=== PATIENT | female | born 2000 | race Two or more races ===

== ENCOUNTER 2024-07-18 05:38 | Inpatient (IN) | payer OTHER, SELFPAY ==
[2024-07-18] VITALS (15 sets, daily range): BP systolic 118–159; BP diastolic 74–103; PULSE 98–126; RESP 15–22; TEMP 36.1–37.1; O2SAT 88–99; BMI 59.7; BMI 59.8
--- NOTE | ~2024-07-18 | XR_ITS ---
EXAMINATION: XR CHEST CLINICAL INFORMATION: Cough. COMPARISON: None available. TECHNIQUE: Frontal view of the chest was obtained. FINDINGS: A left pectoral tunneled internal jugular catheter terminates in projection with the cavoatrial junction. Normal appearance of the cardiomediastinal structures. No effusions or pneumothoraces. Normal pattern of pulmonary vasculature. No focal pulmonary consolidation. XR/XR chest 1V IMPRESSION: No acute cardiopulmonary abnormalities. Electronically signed by: Camron Kingsley MD 07/18/2024 06:28 AM [facility] JE[facility]
--- NOTE | ~2024-07-18 | US_ITS ---
EXAMINATION: US TRIPLEX LOWER EXTREMITY, BILATERAL CLINICAL INFORMATION: Pulmonary embolism. Concerning BVD. COMPARISON: None available. TECHNIQUE: Color-flow triplex imaging with spectral analysis and compression Doppler were performed on the bilateral lower extremities. FINDINGS: Respiratory variation, normal compression and augmented flow are noted throughout the bilateral lower extremities. The visualized common femoral vein, superficial femoral vein, profunda femoral vein, popliteal vein and midcalf peroneal and posterior tibial venous segments show no evidence of deep venous thrombosis bilaterally. There is no Gaviria's cyst. US/US venous duplex LE BI IMPRESSION: No acute deep venous thrombosis in the interrogated veins, both lower extremities. Electronically signed by: Trevor Hernandez MD 07/18/2024 12:56 PM EST
--- NOTE | ~2024-07-18 | CT_ITS ---
EXAMINATION: CT ANGIOGRAM CHEST CLINICAL INFORMATION: Hypoxia. Tachycardia. COMPARISON: None available. TECHNIQUE: Multiple axial images were obtained through the chest after the administration of 85 mL of Omnipaque 350 intravenous contrast without reported immediate complications. Extensive vascular post-processing including two-dimensional and three-dimensional reformatted images were created and reviewed on an independent workstation. This CT examination was performed using dose optimization techniques as appropriate, variously including the following: *Automated exposure control *Adjustment of mA and/or kV according to patient size (this includes techniques or standardized protocols for targeted exams where dose is matched to indication/reason for exam; i.e. extremities or head) *Use of iterative reconstruction technique DLP: 487 mGy-cm FINDINGS: Limited by patient's motion artifact, body habitus and SmartPrep technique timing. Questionable intraluminal filling defects within the subsegmental pulmonary branches to the left lower lobe. No aneurysm or dissection, thoracic aorta. Lymphadenopathy, mediastinum, retrocrural. Multifocal patchy pulmonary groundglass, bilaterally. No pleural effusion. No pneumothorax. No bronchiectasis. No honeycombing. No pericardial effusion. No acute fracture or listhesis in the axial skeleton. Liver and spleen appear enlarged. CT/CT angio chest PE protocol IMPRESSION: Concerning acute pulmonary artery emboli, left lower lobe. Acute airspace disease/multifocal pneumonia. Consider SARS-Cov-2 in the correct clinical settings. Probable lymphoproliferative disorder. Fleischner guidelines were followed. Electronically signed by: Trevor Hernandez MD 07/18/2024 09:54 AM [facility]
[2024-07-18] MEDS: Albuterol Sulfate 2.5 MG, Albuterol Sulfate (0.083%) 2.5 MG 5 MG INHALE (06:33)
--- NOTE | 2024-07-18 06:38 | MHC.EDTECH ---
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
[2024-07-18] MEDS: methylPREDNISolone Sod Succ 125 MG/2 ML VIAL IVPUSH (06:42)
--- NOTE | 2024-07-18 06:44 | PC.NURSE ---
Pt medicated per [facility] Plan of care ongoing.
[2024-07-18 07:00] LABS: Influenza A PCR NEGATIVE (Negative); Influenza B PCR NEGATIVE (Negative); Resp Syncy Virus RNA Qual PCR NEGATIVE (Negative); SARS COV2 PCR INHOUSE NEGATIVE (Negative)
--- NOTE | 2024-07-18 07:30 | PC.NURSE ---
Resumed care of pt at 0700. Upon morning rounding pt found to be 88% on room air and sob, unable to speak in full sentences. Pt placed on 2L NC with good effect up to 92-96%, Maggie STANLEY notified.
--- NOTE | 2024-07-18 07:40 | ED.ASTHMA ---
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 She states that she called her oncologist who advised her to increase her oxycodone dosing as they thought this was attributed to her cancer diagnosis. She has been doing that however states that she has had worsening shortness of breath and does report pleuritic pain, localized in the left flank with deep inspiration. She also states decreased urination. She has been having to use her albuterol inhaler often, and has received multiple updrafts in the department which has provided her with minimal relief. No recent travel, surgery or hospitalizations. No history of blood clots. MD complaint: shortness of breath and wheezing Associated symptoms: chest pain Related Data Current Asthma Therapy: inhaled bronchodilator Home Medications ?Medication ?Instructions ?Recorded ?Confirmed acetaminophen 325 mg tablet 325 mg PO QID PRN Pain (Scale 07/18/24 07/18/24 Score 1-3) albuterol sulfate 90 mcg/actuation 2 puff inhalation Q4H PRN Wheezing 07/18/24 07/18/24 aerosol inhaler (Ventolin HFA) betamethasone dipropionate 0.05 % 1 appl topical BID 07/18/24 07/18/24 topical cream cholecalciferol (vitamin D3) 25 25 mcg PO DAILY 07/18/24 07/18/24 mcg (1,000 unit) capsule (Vitamin D3) erlotinib 150 mg tablet 150 mg PO DAILY 07/18/24 07/18/24 fluticasone propionate 230 2 puff inhalation BID 07/18/24 07/18/24 mcg-salmeterol 21 mcg/actuation HFA inhaler (Advair HFA) oxycodone 5 mg tablet 5 mg PO Q4H PRN pain 07/18/24 07/18/24 Allergies Allergy/AdvReac Type Severity Reaction Status Date / Time nystatin Allergy Hives Verified 07/18/24 05:59 amoxicillin AdvReac Vomiting Verified 07/18/24 05:59 Review of Systems Review of Systems: Yes all other systems are reviewed and are negative Constitutional: Constitutional: Reports as per [facility] Past Medical History Medical History (Updated 07/18/24 @ 17:25 by LIZETH Solorio) HTN (hypertension) Depression Moderate persistent asthma Status post nephrectomy 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[facility]) Social History Social History Patient Tobacco Use Status: Never used Tobacco Smoked in Last 30 Days: No Use of substances other than those prescribed or required for medical reasons: No Advance Directives: Yes Advance Directives Information Provided: Yes Advance Directives on File: No Nutrition Risks: No Nutritional Risk Patient : No Physical Exam Vital Signs: Vital Signs: Last Vital Signs Temp 98.3 F 07/18/24 14:59 Pulse 115 H 07/18/24 15:48 Resp 20 07/18/24 15:48 BP 159/92 H 07/18/24 14:59 Pulse Ox 94 07/18/24 14:59 O2 Del Method Nasal Cannula 07/18/24 14:59 O2 Flow Rate 2 07/18/24 14:59 BMI result Body Mass Index 59.8 Const: General: cooperative, comfortable and no acute distress Nutritional Appearance: obese Orientation/consciousness: patient oriented x3 HEENT: Head: Yes normal to inspection, Yes normocephalic and Yes atraumatic Ears: hearing grossly normal bilaterally General nose exam: Normal external nose present Face and sinus: Yes normal facial exam Mouth: Normal oral and palatal mucosa present, oropharynx normal and moist mucous membranes Throat: Yes posterior oropharynx normal Eyes: General: appearance normal, both eyes and all related structures Eyelids: Yes eyelids normal Conjunctivae: conjunctivae normal Sclerae: sclerae normal Pupils: Equal, round and reactive pupils present EOM: EOMs intact bilaterally Neck: Neck: Yes normal visual inspection, Yes full ROM and Yes no lymphadenopathy Lymphatic: no lymphadenopathy noted Chest: Chest palpation & inspection: normal inspection of the chest Resp: Other: 2 to 3 word sentences, inspiratory and expiratory wheezes and rhonchi noted throughout all lung varma. Effort & Inspection: labored, tachypneic, no tripod positioning and symmetric chest movement Cardio: Rate: regular rate Rhythm: regular rhythm Heart sounds: S1 normal heart sound present and S2 normal heart sound present GI: Inspection: Yes normal to inspection Skin: General skin exam: no rashes or lesions noted Trauma: no lacerations or abrasions Wounds: no wounds Neuro: General: patient oriented x3 and moves all extremities Cranial nerves: Yes Equal, round and reactive pupils present Extrem: Other: No pitting edema noted bilaterally General: Yes normal to inspection Right upper extremity: normal to inspection Left upper extremity: normal to inspection Right lower extremity: normal to inspection Left lower extremity: normal to inspection Course Reevaluation(s) Reevaluation #1: CT angio revealing concerning findings for an acute pulmonary arterial emboli, in the left lower lobe. There is also acute airspace disease and multifocal pneumonia. There is also probable lymphoproliferative disorder. Immediately reached out to the hospitalist. Troponin and EKG added STAT. Patient remained stable, she is not hypotensive. Time: 10:09 Reevaluation #2: Spoke to Dr. Miller who reviewed case per my attending physician's recommendations, not meeting ICU level of care at this time. Dr. Chin recommending heparin drip, without bolus, also starting ceftriaxone and doxycycline IV to cover for multifocal pneumonia. Transfer of care initiated. Patient remained stable, she is not hypotensive however remains to be tachycardic, she is saturating at 94% on 2 L OxyMask. Discussed overall workup with patient. She understands and agrees with overall plan. No reported contraindications for IV heparin at this time therefore IV heparin initiated. Transfer of care to the hospitalist initiated Time: 11:01 Medications Administered Generic Name Dose Route Start Last Admin Trade Name Freq PRN Reason Stop Dose Admin Acetaminophen 650 mg 07/18/24 11:50 07/18/24 15:17 Acetaminophen 325 Mg Tablet PO 650 mg Q6H PRN Administration Pain, Mild (Pain Scale 1-3), fever or headache Albuterol/Ipratropium 3 ml 07/18/24 12:00 07/18/24 15:47 Albuterol/Iprat 2.5/0.5mg 3 Ml Ampul.Neb INHALE 3 ml RQ4H WHILE AWAKE HEAVENLY Administration Dexamethasone Sodium Phosphate 6 mg 07/18/24 15:50 07/18/24 16:38 Dexamethasone Sod Phosphate 4 Mg/Ml Vial IVPUSH 6 mg DAILY HEAVENLY Administration Heparin Sodium/Sodium Chloride 25,000 unit in 250 mls @ 0 mls/hr 07/18/24 11:30 07/18/24 11:45 Heparin Sodium,Porcine/1/2ns IVCONT 14 units/kg/hr .Q0M HEAVENLY 19.46 mls/hr Administration Protocol Per Protocol Oxycodone HCl 5 mg 07/18/24 12:35 07/18/24 15:17 Oxycodone Hcl Immed Release 5 Mg Tablet PO 5 mg Q4H PRN Administration Pain, Moderate(Pain Scale 4-6) Sodium Chloride 3 ml 07/18/24 16:00 07/18/24 16:41 0.9 % Sodium Chloride Flush 3 Ml Syringe IVFLUSH Not Given QSHIFT HEAVENLY Discontinued Medications Generic Name Dose Route Start Last Admin Trade Name Freq PRN Reason Stop Dose Admin Albuterol Sulfate 2.5 mg/ 5 mg 07/18/24 06:26 07/18/24 06:33 Albuterol Sulfate 2.5 mg INHALE 07/18/24 06:27 5 mg ONCE ONE Administration Albuterol Sulfate 2.5 mg 07/18/24 11:32 07/18/24 11:36 Albuterol Sulfate (0.083%) 2.5 Mg/3 Ml Vial.Neb INHALE 07/18/24 11:33 2.5 mg ONCE ONE Administration Ceftriaxone Sodium 2 gm 07/18/24 10:41 07/18/24 11:18 Ceftriaxone Sodium 2 Gm Vial IVPUSH 07/18/24 10:42 2 gm ONCE ONE Administration Magnesium Sulfate 2 gm in 50 mls @ 150 mls/hr 07/18/24 07:48 07/18/24 09:01 Magnesium Sulfate/H2o IV 07/18/24 08:07 Infused ONCE ONE Infusion Doxycycline Hyclate 100 mg/ 250 mls @ 166.67 mls/hr 07/18/24 10:40 07/18/24 13:01 Sodium Chloride IV 07/18/24 12:09 Infused ONCE ONE Infusion Iohexol 100 ml 07/18/24 08:35 07/18/24 08:36 Iohexol 350 Mg/Ml 100 Ml Infus..Btl IV 07/18/24 08:36 85 ml ONCE ONE Administration Methylprednisolone Sodium Succinate 125 mg 07/18/24 05:58 07/18/24 06:42 Methylprednisolone Sod Succ 125 Mg/2 Ml Vial IVPUSH 07/18/24 05:59 125 mg ONCE ONE Administration Medical Decision Making Medical Decision Making [facility] Narrative: This is a 23-year-old female, hx of asthma and kidney cancer stage 4,who presents emergency department with complaints of acute onset shortness of breath and chest pressure x 2 days. On my initial assessment, patient tachycardic in the 120s 130s, and hypoxic at 88%. My immediate concern is whether not this is a pulmonary embolism. She reports inspiratory and expiratory wheezes noted throughout all lung varma. Given these concerns, as well as minimal improvement with multiple updrafts, IV Solu-Medrol, patient will be medicated with IV magnesium, labs. I immediately sent patient to CT scan for a CTA of her chest given hypoxia, shortness for breath, chest pressure. We are still awaiting these labs, however do not want to await these labs, as decompensation has occurred since her initial presentation. Plan: CTA chest, labs, IV steroids, updrafts, patient likely needing hospital admission secondary to hypoxia Differential Diagnosis Differential Diagnoses: The differential diagnosis associated with the presentation includes PE, asthma exacerbation, URI, COVID, pneumonia Admission/Observation Consideration of admission/observation: Escalation of care including admission/observation considered Patient requiring admission Consult Healthcare Provider Management of the patient was discussed with: Hospitalist and Supply Chain Assistant ICU Consulting It Architect - Dr. Miller Hospitalist - Dr. Chin Lab Data [facility] Lab Attestation statement: I reviewed the patient's lab results. Slight leukocytosis at 12.4, may be reactive secondary to multiple updrafts and malignancy. Chemistry within normal limits 1st troponin elevated at 39.4. 07/18/24 08:00 07/18/24 08:00 Labs: Lab Results 07/18/24 07/18/24 07/18/24 Range/Units 06:13 08:00 10:59 WBC 12.6 H (4.8-10.8) X10*3/uL RBC 4.99 (4.20-5.50) X10*6/uL Hgb 13.5 (12.0-16.0) g/dl Hct 42.5 (37.0-47.0) % MCV 85.2 (80.0-98.0) fL MCH 27.1 (27.0-33.0) pg MCHC 31.8 (31.0-35.0) g/dl RDW 16.5 H (11.0-16.0) % Plt Count 376 (160-400) X10*3/uL MPV 8.2 L (9.4-12.3) fL Immature Gran % (Auto) 0.6 H (0.0-0.4) % Neut % (Auto) 84.9 H (45-73) % Lymph % (Auto) 8.1 L (20-40) % Duchesne % (Auto) 3.4 (2-11) % Eos % (Auto) 2.8 (0-4) % Baso % (Auto) 0.2 (0-2) % Lymph # (Auto) 1.0 L (1.2-4.9) X10*3/uL Duc[place]ne # (Auto) 0.4 (0.1-1.2) X10*3/uL Eos # (Auto) 0.4 (0.0-0.4) X10*3/uL Baso # (Auto) 0.0 (0.0-0.2) X10*3/uL Abs Immat Gran (auto) 0.07 H (0.00-0.03) X10*3/uL Absolute Neuts (auto) 10.7 H (2.0-8.3) x10*3/uL Absolute Nucleated RBC 0.000 (0.0-0.012) X10*3/uL Nucleated RBC % (auto) 0.0 (0.0-0.2) /100WBC PT 12.8 H (10.9-12.4) SEC INR 1.1 (0.9-1.1) APTT Cancelled aPTT Heparin Protocol 34.7 L (53-77.9) SEC VBG pH (7.32-7.43) VBG pCO2 mmHg VBG pO2 mmHg VBG HCO3 (22-26) mmol/L VBG O2 Saturation % VBG Base Excess mmol/L Sodium 136 (135-145) mmol/L Potassium 4.1 (3.3-5.1) mmol/L Chloride 102 (96-108) mmol/L Carbon Dioxide 23 (22-29) mmol/L Anion Gap 15 (12-20) BUN 12 (9-16) mg/dL Creatinine 0.85 (0.5-1.4) mg/dL Estim Creat Clear Calc 136.8 Estimated GFR > 60 Random Glucose 104 (60-115) mg/dL Lactic Acid 1.6 (0.5-2.0) mmol/L Calcium 10.2 (8.4-10.2) mg/dL Magnesium 1.8 (1.6-2.6) mg/dL Total Bilirubin 0.3 (0.0-1.0) mg/dL Direct Bilirubin 0.2 (0.0-0.5) mg/dL AST 24 (5-31) U/L ALT 32 H (0-31) U/L Alkaline Phosphatase 108 (39-117) U/L Troponin I High Sens 39.4 H 40.1 H (<3.5-17.0) ng/L B-Natriuretic Peptide 20 (<100) pg/mL Total Protein 8.6 H (6.5-8.0) g/dL Albumin 4.1 (3.5-5.0) g/dL Lipase 8 (8-78) U/L Influenza Type A (PCR) NEGATIVE (Negative) Influenza Type B (PCR) NEGATIVE (Negative) RSV RNA Qual (PCR) NEGATIVE (Negative) SARS-CoV-2 RNA (RT-PCR) NEGATIVE (Negative) 07/18/24 Range/Units 11:02 WBC (4.8-10.8) X10*3/uL RBC (4.20-5.50) X10*6/uL Hgb (12.0-16.0) g/dl Hct (37.0-47.0) % MCV (80.0-98.0) fL MCH (27.0-33.0) pg MCHC (31.0-35.0) g/dl RDW (11.0-16.0) % Plt Count (160-400) X10*3/uL MPV (9.4-12.3) fL Immature Gran % (Auto) (0.0-0.4) % Neut % (Auto) (45-73) % Lymph % (Auto) (20-40) % Duchesne % (Auto) (2-11) % Eos % (Auto) (0-4) % Baso % (Auto) (0-2) % Lymph # (Auto) (1.2-4.9) X10*3/uL Duc[place]ne # (Auto) (0.1-1.2) X10*3/uL Eos # (Auto) (0.0-0.4) X10*3/uL Baso # (Auto) (0.0-0.2) X10*3/uL Abs Immat Gran (auto) (0.00-0.03) X10*3/uL Absolute Neuts (auto) (2.0-8.3) x10*3/uL Absolute Nucleated RBC (0.0-0.012) X10*3/uL Nucleated RBC % (auto) (0.0-0.2) /100WBC PT (10.9-12.4) SEC INR (0.9-1.1) APTT aPTT Heparin Protocol (53-77.9) SEC VBG pH 7.43 (7.32-7.43) VBG pCO2 31 mmHg VBG pO2 53 mmHg VBG HCO3 21 L (22-26) mmol/L VBG O2 Saturation 91.0 % VBG Base Excess -1.5 mmol/L Sodium (135-145) mmol/L Potassium (3.3-5.1) mmol/L Chloride (96-108) mmol/L Carbon Dioxide (22-29) mmol/L Anion Gap (12-20) BUN (9-16) mg/dL Creatinine (0.5-1.4) mg/dL Estim Creat Clear Calc Estimated GFR Random Glucose (60-115) mg/dL Lactic Acid (0.5-2.0) mmol/L Calcium (8.4-10.2) mg/dL Magnesium (1.6-2.6) mg/dL Total Bilirubin (0.0-1.0) mg/dL Direct Bilirubin (0.0-0.5) mg/dL AST (5-31) U/L ALT (0-31) U/L Alkaline Phosphatase (39-117) U/L Troponin I High Sens (<3.5-17.0) ng/L B-Natriuretic Peptide (<100) pg/mL Total Protein (6.5-8.0) g/dL Albumin (3.5-5.0) g/dL Lipase (8-78) U/L Influenza Type A (PCR) (Negative) Influenza Type B (PCR) (Negative) RSV RNA Qual (PCR) (Negative) SARS-CoV-2 RNA (RT-PCR) (Negative) Independent Interpretation I performed an independent interpretation of an: EKG Interpretation: EKG sinus tachycardia at a ventricular rate of 110 beats per minute, OH interval 120, QT QTC 324/438. Radiology Impression Discussion of test interpretation with radiology: I have reviewed the radiologist's reading. Radiologist Impression: CT/CT angio chest PE protocol IMPRESSION: Concerning acute pulmonary artery emboli, left lower lobe. Acute airspace disease/multifocal pneumonia. Consider SARS-Cov-2 in the correct clinical settings. Probable lymphoproliferative disorder. Fleischner guidelines were followed. Electronically signed by: Trevor Hernandez MD 07/18/2024 09:54 AM EST RP Dictated By: Trevor Navarrete MD XR/XR chest 1V IMPRESSION: No acute cardiopulmonary abnormalities. Electronically signed by: Camron Kingsley MD 07/18/2024 06:28 AM EST RP Dictated By: Camron Kingsley MD Signed By: <Electronically signed by Camron Kingsley MD in OV> Prescription Management I considered prescription management with: Antibiotic Chronic Conditions Patient?s care impacted by: Cancer Critical Care Time Critical Care Time Critical Care Time: Yes Total Critical Care Time: 60 Attestation: I have personally provided critical care time exclusive of time spent on separately billable procedures. Time includes review of lab data, radiology results, discussion with consultants, and monitoring for potential decompensation. Intervention performed as documented. Discharge Plan Discharge Clinical Impression: Hypoxia, Pulmonary emboli, Acute hypoxic respiratory failure Patient Disposition: Admitted As Inpatient Interventions: Admission Worksheet (ED) Last Done: 07/18/24 16:43
[2024-07-18 08:04] LABS: MANUAL DIFF FLAG NO
[2024-07-18 08:05] LABS: Basophils Percent Auto 0.2 % (0-2); Eosinophils Absolute Auto 0.4 X10*3/uL (0.0-0.4); Eosinophils Percent Auto 2.8 % (0-4); Hematocrit 42.5 % (37.0-47.0); Hemoglobin 13.5 g/dl (12.0-16.0); Imm Gran Abs Auto 0.07 X10*3/uL (0.00-0.03); Imm Gran Pct Auto 0.6 % (0.0-0.4); Lymphocytes Percent Auto 8.1 % (20-40); Mean Corpuscular HGB Conc 31.8 g/dl (31.0-35.0); Mean Corpuscular Hemoglobin 27.1 pg (27.0-33.0); Mean Corpuscular Volume 85.2 fL (80.0-98.0); Mean Platelet Volume 8.2 fL (9.4-12.3); Monocytes Absolute Auto 0.4 X10*3/uL (0.1-1.2); Monocytes Percent Auto 3.4 % (2-11); Neutrophils Absolute Auto 10.7 x10*3/uL (2.0-8.3); Neutrophils Percent Auto 84.9 % (45-73); Platelet Count 376 X10*3/uL (160-400); Red Blood Count 4.99 X10*6/uL (4.20-5.50); Red Cell Distribution Width 16.5 % (11.0-16.0); White Blood Count 12.6 X10*3/uL (4.8-10.8)
[2024-07-18] MEDS: Magnesium Sulfate/H2O 2 GM/50 ML PIGGYBACK IV (08:13)
[2024-07-18 08:22] LABS: Alanine Aminotransferase 32 U/L (0-31); Albumin Level 4.1 g/dL (3.5-5.0); Alkaline Phosphatase 108 U/L (39-117); Anion Gap 15 (12-20); Aspartate Amino Transferase 24 U/L (5-31); Bilirubin Direct 0.2 mg/dL (0.0-0.5); Bilirubin Total 0.3 mg/dL (0.0-1.0); Blood Urea Nitrogen 12 mg/dL (9-16); Calcium 10.2 mg/dL (8.4-10.2); Carbon Dioxide 23 mmol/L (22-29); Chloride 102 mmol/L (96-108); Creatinine Clr Calc Pharmacy 136.8; Estimated Glomerular Filt Rate > 60; Glucose Random 104 mg/dL (60-115); Lipase 8 U/L (8-78); Magnesium 1.8 mg/dL (1.6-2.6); Potassium 4.1 mmol/L (3.3-5.1); Sodium 136 mmol/L (135-145); Total Protein 8.6 g/dL (6.5-8.0)
[2024-07-18] MEDS: iohexoL 350 MG/ML 100 ML INFUS..BTL IV (08:36)
[2024-07-18 09:33] LABS: B Type Natriuretic Peptide 20 pg/mL (<100)
--- NOTE | 2024-07-18 10:29 | ECG_ITS ---
Test Reason : CP Blood Pressure : / mmHG Vent. Rate : 110 BPM Atrial Rate : 110 BPM P-R Int : 120 ms QRS Dur : 090 ms QT Int : 324 ms P-R-T Axes : 064 046 018 degrees QTc Int : 438 ms Sinus tachycardia Otherwise normal ECG No previous ECGs available Referred By: Maggie Barrientos Electronically Signed By:Carlos Alberto Roldan
[2024-07-18 10:37] LABS: Troponin-I High Sensitivity 39.4 ng/L (<3.5-17.0)
[2024-07-18 11:06] LABS: Venous Blood Gas Refer to POC result
[2024-07-18 11:07] LABS: VBG Base Excess -1.5 mmol/L; VBG HCO3 21 mmol/L (22-26); VBG pCO2 31 mmHg; VBG pH 7.43 (7.32-7.43); VBG pO2 53 mmHg
[2024-07-18 11:14] LABS: INTERNATIONAL NORM RATIO 1.1 (0.9-1.1); Prothrombin Time 12.8 SEC (10.9-12.4)
[2024-07-18 11:17] LABS: PTT Heparin Drip 34.7 SEC (53-77.9)
[2024-07-18] MEDS: cefTRIAXone sodium 2 GM VIAL IVPUSH (11:18)
--- NOTE | 2024-07-18 11:18 | P.HPHOSP_ITS ---
History of Present Illness Date of Service: 07/18/24 Attending physician on admission: Mitchell Chin Chief Complaint: SOB Pt is a 23-year-old female with a PMH significant for?hereditary leiomyomatosis, renal cell cancer syndrome on biweekly chemo, renal cell carcinoma s/p left nephrectomy 2022, HTN, moderate persistent asthma, and depression who presents to the ED with?SOB and difficulty breathing since yesterday. Patient reports she developed pain in her left side that radiated to her back on Monday evening. Contacted her oncologist on Monday who thought it might be associated with her cancer and patient was started on oxycodone. Pain persisted on Monday and was not controlled with analgesics, particularly associated with breathing deeply. Last night patient began to feel short of breath and had difficulty breathing that was not alleviated with home inhalers. Symptoms worsened this morning and patient was having difficulty talking or taking a deep breath. Occasional mostly non-productive cough. No fever, chills, N/V/D. Denies any recent prolonged travel, has been active and ambulating at baseline. No lower leg swelling or calf pain. In the ED pt was tachycardic up to 122, tachypneic up to 21, and hypertensive to 154/103, satting at 88% on RA. Labs were significant for leukocytosis of 12.6 and initial troponin 39.4. H&H stable and baseline. No significant electrolyte abnormalities. Renal function WNL. Lactic acid 1.6. Tested negative for flu, RSV, and COVID. CTA found evidence concerning for acute pulmonary artery emboli and left lower lobe as well as acute airspace disease/multifocal pneumonia and probable lymphoproliferative disorder. CXR showed no acute cardiopulmonary abnormalities. EKG demonstrated sinus tachycardia of [address] elevations or depressions. In the ED pt was treated with DuoNebs, Solu-Medrol, Mag sulfate, ceftriaxone, doxycycline, and started on a heparin drip. Pt will be admitted to the hospital for treatment and further evaluation of acute hypoxic respiratory failure in the setting of pulmonary embolism. Review of Systems 2 Review of Systems: Negative except for that which is stated in the [facility] Medical History (Updated 07/18/24 @ 12:27 by LIZETH Howard) HTN (hypertension) Depression Moderate persistent asthma Status post nephrectomy 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[facility]) Social History Smoked in Last 30 Days: No Use of substances other than those prescribed or required for medical reasons: No Advance Directives: Yes Advance Directives Information Provided: Yes Advance Directives on File: No Meds Allergies Allergy/AdvReac Type Severity Reaction Status Date / Time nystatin Allergy Hives Verified 07/18/24 05:59 amoxicillin AdvReac Vomiting Verified 07/18/24 05:59 Active Medications: Current Medications Heparin Sodium (Porcine) (Heparin Sodium,Porcine 5,000 Unit/Ml Vial) 5,500 unit 40 unit/kg (5500 unit) IVPUSH PROTOCOL BOLUS PRN; Protocol PRN Reason: 40 unit/kg - Heparin Protocol Heparin Sodium (Porcine) (Heparin Sodium,Porcine 5,000 Unit/Ml Vial) 10,000 unit IVPUSH PROTOCOL BOLUS PRN; Protocol PRN Reason: 80 unit/kg - Heparin Protocol Doxycycline Hyclate 100 mg/ (Sodium Chloride) 250 mls @ 166.67 mls/hr IV ONCE ONE Stop: 07/18/24 12:09 Heparin Sodium/Sodium Chloride (Heparin Sodium,Porcine/1/2ns) 25,000 unit in 250 mls @ 0 mls/hr IVCONT .Q0M [facility]; Protocol Home Medications ?Medication ?Instructions ?Recorded ?Confirmed ?Last Taken ?Type acetaminophen 325 mg tablet 325 mg PO QID PRN Pain (Scale 07/18/24 07/18/24 07/17/24 History Score 1-3) albuterol sulfate 90 mcg/actuation 2 puff inhalation Q4H PRN Wheezing 07/18/24 07/18/24 07/17/24 History aerosol inhaler (Ventolin HFA) betamethasone dipropionate 0.05 % 1 appl topical BID 07/18/24 07/18/24 07/17/24 History topical cream cholecalciferol (vitamin D3) 25 25 mcg PO DAILY 07/18/24 07/18/24 07/17/24 History mcg (1,000 unit) capsule (Vitamin D3) erlotinib 150 mg tablet 150 mg PO DAILY 07/18/24 07/18/24 07/17/24 History fluticasone propionate 230 2 puff inhalation BID 07/18/24 07/18/24 07/17/24 History mcg-salmeterol 21 mcg/actuation HFA inhaler (Advair HFA) oxycodone 5 mg tablet 5 mg PO Q4H PRN pain 07/18/24 07/18/24 07/17/24 History Physical Exam 2 Vital Signs and Narrative: Vital Signs: Last Vital Signs Temp 98.7 F 07/18/24 06:33 Pulse 116 H 07/18/24 10:28 Resp 15 07/18/24 10:28 BP 154/103 H 07/18/24 10:28 Pulse Ox 94 07/18/24 10:28 O2 Del Method Oxymask 07/18/24 10:28 O2 Flow Rate 2 07/18/24 10:28 BMI result Body Mass Index 59.8 Constitutional: Alert, in no acute distress. Mental Status: Oriented to person, place and time. Eyes: Pupils are equal, round, and reactive to light. Ear, Nose, and Throat: Oropharynx clear, mucous membranes moist. Ears and nose without deformities. Trachea midline. Respiratory: Mild expiratory wheezing bilaterally. Cardiovascular: S1, S2 regular rhythm, tachycardic. No murmurs, rubs, or gallops. Gastrointestinal: Abdomen soft, non-distended, with LUQ tenderness. Normal bowel sounds. Neurologic: Cranial nerves II-XII are grossly intact bilaterally. No focal neurological deficits. Moves all extremities spontaneously. Skin: Warm, dry. Extremities: No edema. Psychiatric: Normal mood and affect. Results Labs 07/18/24 08:00 07/18/24 08:00 Labs: Laboratory Results - last 24 hr 07/18/24 07/18/24 07/18/24 06:13 08:00 10:59 MCV 85.2 MCH 27.1 MCHC 31.8 RDW 16.5 H Plt Count 376 MPV 8.2 L Immature Gran % (Auto) 0.6 H Neut % (Auto) 84.9 H Lymph % (Auto) 8.1 L [place] % (Auto) 3.4 Eos % (Auto) 2.8 Baso % (Auto) 0.2 Lymph # (Auto) 1.0 L [place] # (Auto) 0.4 Eos # (Auto) 0.4 Baso # (Auto) 0.0 Abs Immat Gran (auto) 0.07 H Absolute Neuts (auto) 10.7 H Absolute Nucleated RBC 0.000 Nucleated RBC % (auto) 0.0 PT 12.8 H INR 1.1 APTT Cancelled aPTT Heparin Protocol 34.7 L VBG pH VBG pCO2 VBG pO2 VBG HCO3 VBG O2 Saturation VBG Base Excess Anion Gap 15 Estim Creat Clear Calc 136.8 Estimated GFR > 60 Random Glucose 104 Calcium 10.2 Magnesium 1.8 Total Bilirubin 0.3 Direct Bilirubin 0.2 AST 24 ALT 32 H Alkaline Phosphatase 108 Troponin I High Sens 39.4 H B-Natriuretic Peptide 20 Total Protein 8.6 H Albumin 4.1 Lipase 8 Influenza Type A (PCR) NEGATIVE Influenza Type B (PCR) NEGATIVE RSV RNA Qual (PCR) NEGATIVE SARS-CoV-2 RNA (RT-PCR) NEGATIVE 07/18/24 11:02 MCV MCH MCHC RDW Plt Count MPV Immature Gran % (Auto) Neut % (Auto) Lymph % (Auto) [place] % (Auto) Eos % (Auto) Baso % (Auto) Lymph # (Auto) [place] # (Auto) Eos # (Auto) Baso # (Auto) Abs Immat Gran (auto) Absolute Neuts (auto) Absolute Nucleated RBC Nucleated RBC % (auto) PT INR APTT aPTT Heparin Protocol VBG pH 7.43 VBG pCO2 31 VBG pO2 53 VBG HCO3 21 L VBG O2 Saturation 91.0 VBG Base Excess -1.5 Anion Gap Estim Creat Clear Calc Estimated GFR Random Glucose Calcium Magnesium Total Bilirubin Direct Bilirubin AST ALT Alkaline Phosphatase Troponin I High Sens B-Natriuretic Peptide Total Protein Albumin Lipase Influenza Type A (PCR) Influenza Type B (PCR) RSV RNA Qual (PCR) SARS-CoV-2 RNA (RT-PCR) Imaging Radiologist's Impressions: Impressions Chest X-Ray 07/18/24 06:00 IMPRESSION: No acute cardiopulmonary abnormalities. Electronically signed by: Camron Kingsley MD 07/18/2024 06:28 AM EST RP Chest CTA 07/18/24 08:05 IMPRESSION: Concerning acute pulmonary artery emboli, left lower lobe. Acute airspace disease/multifocal pneumonia. Consider SARS-Cov-2 in the correct clinical settings. Probable lymphoproliferative disorder. Fleischner guidelines were followed. Electronically signed by: Trevor Hernandez MD 07/18/2024 09:54 AM EST RP Assessment and Plan (1) Pulmonary emboli: Status: Acute (2) Hypoxia: Status: Acute Plan Pt is a 23-year-old female with a PMH significant for?hereditary leiomyomatosis, renal cell cancer syndrome on biweekly chemo, renal cell carcinoma s/p left nephrectomy 2022, HTN, moderate persistent asthma, and depression who presents to the ED with?SOB and difficulty breathing since yesterday. Pt will be admitted to the hospital for treatment and further evaluation of acute hypoxic respiratory failure in the setting of pulmonary embolism. Acute hypoxic respiratory failure in the setting of acute pulmonary emboli SOB, difficulty breathing, cough, pleuritic chest pain, desatting to 80s on RA CTA of chest concerning for acute pulmonary emboli of LLL Likely secondary to hypercoagulability in the setting of renal cell carcinoma Will check US doppler bilateral lower extremities to r/o DVT Treat with heparin drip Tim Titrate supplemental O2 >92%, wean as tolerated ?Multifocal pneumonia meeting SIRS criteria CTA concerning acute airspace disease/multifocal pneumonia/COVID COVID/RSV/flu negative Meets SIRS criteria: Tachycardia, tachypnea, leukocytosis; lactic acid WNL Started on broad-spectrum antibiotics in the ED Will empirically treat with ceftriaxone and doxycycline, started 07/18/2024 Check full respiratory panel LUQ tenderness Likely secondary to above Treat as above If symptoms persist consider abdominal imaging Renal cell carcinoma Continue home erlotinib Moderate persistent asthma Not in acute exacerbation Tim Full Code Attending:?Dr. Chin DVT Prophylaxis: On heparin drip Pt will require a hospitalization of at least two nights for treatment of?acute hypoxic respiratory failure in the setting acute pulmonary embolism, as well as possible multifocal pneumonia meeting SIRS criteria. Patient will require hospital level care for administration of heparin drip, IV antibiotics, supplemental oxygen, and close monitoring of labs. Quality Stroke Does the patient have a stroke diagnosis?: No VTE Prior VTE?: No VTE Risk Level:: Medical - moderate - high VTE Device Contraindication: Treatment Not Indicated VTE Drug Contraindication: N/A - Med Ordered
[2024-07-18 11:20] LABS: Lactic Acid 1.6 mmol/L (0.5-2.0)
[2024-07-18 11:25] LABS: Troponin-I High Sensitivity 40.1 ng/L (<3.5-17.0)
[2024-07-18] MEDS: Doxycycline Hyclate 100 MG in 0.9 % Sodium Chloride 250 ML 166.67 MG IV (11:27)
[2024-07-18] MEDS: Albuterol Sulfate (0.083%) 2.5 MG/3 ML VIAL.NEB INHALE (11:36)
[2024-07-18] MEDS: Heparin Sodium,Porcine/1/2NS 25,000 UNIT/250 ML IV.SOLN 19.46 UNIT IVCONT (11:45)
--- NOTE | 2024-07-18 12:09 | PHA.MEDREC ---
Pharmacy Consult ? Medication Reconciliation Pharmacy has completed the medication reconciliation.
[2024-07-18] MEDS: Albuterol/Iprat 2.5/0.5MG 3 ML AMPUL.NEB INHALE ×3 (12:21→19:45)
[2024-07-18 15:14] LABS: Adenovirus PCR Not Detected (Not Detect.); Bordetella parapertussis PCR Not Detected (Not Detect.); Bordetella pertussis PCR Not Detected (Not Detect.); Chlamydia pneumoniae PCR Not Detected (Not Detect.); Coronavirus 229E PCR Not Detected (Not Detect.); Coronavirus HKU1 PCR Not Detected (Not Detect.); Coronavirus NL63 PCR Not Detected (Not Detect.); Coronavirus OC43 PCR Not Detected (Not Detect.); Human metapneumovirus PCR Not Detected (Not Detect.); Influenza A PCR Not Detected (Not Detect.); Influenza B PCR Not Detected (Not Detect.); Mycoplasma pneumoniae PCR Not Detected (Not Detect.); Parainfluenza 1 PCR Not Detected (Not Detect.); Parainfluenza 2 PCR Not Detected (Not Detect.); Parainfluenza 3 PCR Not Detected (Not Detect.); Parainfluenza 4 PCR Not Detected (Not Detect.); RSV PCR Not Detected (Not Detect.); Rhino/Enterovirus PCR Detected (Not Detect.)
[2024-07-18 15:17] LABS: SARS-CoV-2 PCR Detected (Not Detect.)
[2024-07-18] MEDS: Acetaminophen 325 MG TABLET 650 MG PO (15:17)
[2024-07-18] MEDS: oxyCODONE HCl Immed Release 5 MG TABLET PO (15:17)
[2024-07-18] MEDS: dexAMETHasone sod phosphate 4 MG/ML VIAL 6 MG IVPUSH (16:38)
[2024-07-18 18:38] LABS: PTT Heparin Drip 39.6 SEC (53-77.9)
[2024-07-18] MEDS: Heparin Sodium,Porcine 5,000 UNIT/ML VIAL 5600 UNIT IVPUSH ×2 (19:19→19:32)
[2024-07-18] MEDS: Melatonin 3 MG TABLET 6 MG PO (20:22)
[2024-07-19] VITALS (10 sets, daily range): BP systolic 119–142; BP diastolic 58–91; PULSE 91–108; RESP 18–22; TEMP 36.2–36.6; O2SAT 90–97
[2024-07-19 02:20] LABS: PTT Heparin Drip 72.1 SEC (53-77.9)
[2024-07-19] MEDS: Heparin Sodium,Porcine/1/2NS 25,000 UNIT/250 ML IV.SOLN 22.24 UNIT IVCONT (03:33)
[2024-07-19] MEDS: Albuterol/Iprat 2.5/0.5MG 3 ML AMPUL.NEB INHALE ×4 (07:08→20:52)
[2024-07-19 08:27] LABS: PTT Heparin Drip 44.8 SEC (53-77.9)
[2024-07-19] MEDS: Heparin Sodium,Porcine 5,000 UNIT/ML VIAL 5600 UNIT IVPUSH (08:54)
[2024-07-19] MEDS: dexAMETHasone sod phosphate 4 MG/ML VIAL 6 MG IVPUSH (08:54)
[2024-07-19] MEDS: Cholecalciferol (Vitamin D3) 25 MCG TABLET PO (08:55)
[2024-07-19] MEDS: Acetaminophen 325 MG TABLET 650 MG PO (08:55)
[2024-07-19] MEDS: 0.9 % Sodium Chloride Flush 3 ML SYRINGE IVFLUSH ×2 (09:00→20:20)
--- NOTE | 2024-07-19 10:32 | MHC.CM.PN ---
Pt lives with her partner and her son, no home health services or DME. PCP confirmed: Noris Keen, HCP discussed and declined. She is able to arrange transport home at [place]. DCP: home, self care.
[2024-07-19] MEDS: Heparin Sodium,Porcine/1/2NS 25,000 UNIT/250 ML IV.SOLN 25.02 UNIT IVCONT (12:34)
[2024-07-19] MEDS: oxyCODONE HCl Immed Release 5 MG TABLET PO ×2 (13:46→20:18)
--- NOTE | 2024-07-19 15:36 | HO.PM.IMPN ---
Subjective Subjective Date of Service: 07/19/24 Interval History: No acute issues overnight. Breathing remained stable Review of Systems Denies chest pain Denies shortness of breath acceptable with exertion Denies nausea vomiting diarrhea Denies fever chills Physical Exam Vital Signs: Vital Signs: Last Vital Signs Temp 97.5 F 07/19/24 11:50 Pulse 108 H 07/19/24 15:10 Resp 20 07/19/24 15:10 BP 119/59 L 07/19/24 11:50 Pulse Ox 95 07/19/24 11:50 O2 Del Method Room Air 07/19/24 11:50 O2 Flow Rate 2 07/18/24 14:59 BMI result Body Mass Index 59.8 Const: Other: Awake alert no acute distress Resp: Other: Diminished at bases otherwise clear Cardio: Other: No S4; positive S1-S2; no S3 murmurs rubs or gallops GI: Other: Obese nontender positive bowel sounds Extrem: Other: No edema bile Objective Data Active Medications Acetaminophen (Acetaminophen 325 Mg Tablet) 650 mg PO Q6H PRN PRN Reason: Pain, Mild (Pain Scale 1-3), fever or headache Last Admin: 07/19/24 08:55 Dose: 650 mg Documented By: MAYELA Albuterol/Ipratropium (Albuterol/Iprat 2.5/0.5mg 3 Ml Ampul.Neb) 3 ml INHALE RQ4H WHILE AWAKE [facility] Last Admin: 07/19/24 15:10 Dose: 3 ml Documented By: BRENDA Albuterol/Ipratropium (Albuterol/Iprat 2.5/0.5mg 3 Ml Ampul.Neb) 3 ml INHALE RQ4H WHILE AWAKE PRN PRN Reason: Shortness of Breath/Wheezing Calcium Carbonate (Calcium Carbonate 750 Mg Tab.Chew) 750 mg PO Q4H PRN PRN Reason: Heartburn Dexamethasone Sodium Phosphate (Dexamethasone Sod Phosphate 4 Mg/Ml Vial) 6 mg IVPUSH DAILY [facility] Last Admin: 07/19/24 08:54 Dose: 6 mg Documented By: MAYELA Heparin Sodium (Porcine) (Heparin Sodium,Porcine 5,000 Unit/Ml Vial) 5,600 unit 40 unit/kg (5600 unit) IVPUSH PROTOCOL BOLUS PRN; Protocol PRN Reason: 40 unit/kg - Heparin Protocol Last Admin: 07/19/24 08:54 Dose: 5,600 unit Documented By: MAYELA Heparin Sodium (Porcine) (Heparin Sodium,Porcine 5,000 Unit/Ml Vial) 10,000 unit IVPUSH PROTOCOL BOLUS PRN; Protocol PRN Reason: 80 unit/kg - Heparin Protocol Heparin Sodium/Sodium Chloride (Heparin Sodium,Porcine/1/2ns) 25,000 unit in 250 mls @ 0 mls/hr IVCONT .Q0M [facility]; Protocol Last Admin: 07/19/24 12:34 Dose: 18 units/kg/hr, 25.02 mls/hr Documented By: MAYELA Co-signed By: LENIN Magnesium Hydroxide (Milk Of Magnesia 30 Ml Oral.Susp) 30 ml PO DAILY PRN PRN Reason: Constipation Melatonin (Melatonin 3 Mg Tablet) 6 mg PO BEDTIME PRN PRN Reason: Insomnia Last Admin: 07/18/24 20:22 Dose: 6 mg Documented By: ROLF Non-Formulary Medication (Erlotinib) 150 mg PO DAILY [facility] Ondansetron HCl (Ondansetron Hcl 4 Mg/2 Ml Vial) 4 mg IVPUSH Q8H PRN PRN Reason: Nausea and Vomiting Oxycodone HCl (Oxycodone Hcl Immed Release 5 Mg Tablet) 5 mg PO Q4H PRN PRN Reason: Pain, Moderate(Pain Scale 4-6) Last Admin: 07/19/24 13:46 Dose: 5 mg Documented By: MAYELA Sodium Chloride (0.9 % Sodium Chloride Flush 3 Ml Syringe) [facility] Last Admin: 07/19/24 09:00 Dose: 3 ml Documented By: MAYELA Vitamin D (Cholecalciferol (Vitamin D3) 25 Mcg Tablet) 25 mcg PO DAILY [facility] Last Admin: 07/19/24 08:55 Dose: 25 mcg Documented By: MAYELA Labs 07/18/24 08:00 07/18/24 08:00 Labs: Laboratory Results - last 24 hr 07/18/24 07/19/24 07/19/24 18:22 01:45 08:04 aPTT Heparin Protocol 39.6 L 72.1 D 44.8 L D Microbiology Microbiology Results: Microbiology 07/18/24 11:10 Blood Culture - Preliminary Blood - Venous No growth after 24 hours. 07/18/24 10:59 Blood Culture - Preliminary Blood - Venous No growth after 24 hours. Assessment and Plan (1) Acute hypoxic respiratory failure: Status: Acute (2) Pulmonary emboli: Status: Acute Plan Pt is a 23-year-old female with a PMH significant for?hereditary leiomyomatosis, renal cell cancer syndrome on biweekly chemo, renal cell carcinoma s/p left nephrectomy 2022, HTN, moderate persistent asthma, and depression who presents to the ED with?SOB and difficulty breathing since yesterday. Pt will be admitted to the hospital for treatment and further evaluation of acute hypoxic respiratory failure in the setting of pulmonary embolism. 1.Acute hypoxic respiratory failure in the setting of acute pulmonary emboli (subsegmental left lower lobe) -continue heparin drip overnight -if stable in a.m.. . . Switch to Eliquis -O2 titrate to maintain sats greater than 92% 2.Multifocal pneumonia meeting SIRS criteria -ceftriaxone/doxycycline DC secondary to positive viral panel -treat clinically 3.Renal cell carcinoma -erlotinib 4.Moderate persistent asthma -stable and well compensated Full Code Heparin drip Pt will require ongoing hospitalization for treatment of?acute hypoxic respiratory failure in the setting acute pulmonary embolism, as well as possible multifocal pneumonia meeting SIRS criteria. Patient will require hospital level care for administration of heparin drip, IV antibiotics, supplemental oxygen, and close monitoring of labs. Quality Stroke Does the patient have a stroke diagnosis?: No VTE Prior VTE?: No VTE Risk Level:: Medical - moderate - high VTE Device Contraindication: Treatment Not Indicated VTE Drug Contraindication: N/A - Med Ordered
[2024-07-19 15:46] LABS: PTT Heparin Drip 155.5 SEC (53-77.9)
[2024-07-19] MEDS: Nicotine 14 MG PATCH.TD24 TRANSDERMA (17:33)
[2024-07-19 17:44] LABS: PTT Heparin Drip 68.5 SEC (53-77.9)
[2024-07-19] MEDS: Melatonin 3 MG TABLET 6 MG PO (20:19)
[2024-07-20] VITALS (10 sets, daily range): BP systolic 115–140; BP diastolic 69–95; PULSE 75–95; RESP 14–26; TEMP 36–37.1; O2SAT 92–96
[2024-07-20] MEDS: Heparin Sodium,Porcine/1/2NS 25,000 UNIT/250 ML IV.SOLN 16.68 UNIT IVCONT ×2 (01:41→16:43)
[2024-07-20] MEDS: Albuterol/Iprat 2.5/0.5MG 3 ML AMPUL.NEB INHALE ×4 (07:45→20:34)
[2024-07-20 07:59] LABS: Basophils Percent Auto 0.2 % (0-2); Eosinophils Percent Auto 0.2 % (0-4); Hematocrit 42.6 % (37.0-47.0); Hemoglobin 13.9 g/dl (12.0-16.0); Imm Gran Abs Auto 0.11 X10*3/uL (0.00-0.03); Imm Gran Pct Auto 0.6 % (0.0-0.4); Lymphocytes Absolute Auto 5.1 X10*3/uL (1.2-4.9); Lymphocytes Percent Auto 28.2 % (20-40); MANUAL DIFF FLAG SCAN; Mean Corpuscular HGB Conc 32.6 g/dl (31.0-35.0); Mean Corpuscular Volume 82.9 fL (80.0-98.0); Mean Platelet Volume 8.4 fL (9.4-12.3); Monocytes Absolute Auto 0.9 X10*3/uL (0.1-1.2); Monocytes Percent Auto 4.9 % (2-11); Neutrophils Percent Auto 65.9 % (45-73); Platelet Count 454 X10*3/uL (160-400); Red Blood Count 5.14 X10*6/uL (4.20-5.50); Red Cell Distribution Width 16.5 % (11.0-16.0); SCAN SMEAR FLAG 1; White Blood Count 18.2 X10*3/uL (4.8-10.8)
[2024-07-20 08:04] LABS: PTT Heparin Drip 64.3 SEC (53-77.9)
[2024-07-20 08:24] LABS: Alanine Aminotransferase 34 U/L (0-31); Albumin Level 4.1 g/dL (3.5-5.0); Alkaline Phosphatase 77 U/L (39-117); Anion Gap 16 (12-20); Aspartate Amino Transferase 24 U/L (5-31); Bilirubin Total 0.2 mg/dL (0.0-1.0); Blood Urea Nitrogen 25 mg/dL (9-16); Calcium 10.3 mg/dL (8.4-10.2); Carbon Dioxide 22 mmol/L (22-29); Chloride 107 mmol/L (96-108); Creatinine Clr Calc Pharmacy 135.4; Estimated Glomerular Filt Rate > 60; Glucose Fasting 79 mg/dL (60-99); Sodium 141 mmol/L (135-145); Total Protein 8.4 g/dL (6.5-8.0)
[2024-07-20 08:41] LABS: SLIDE REVIEW VERIFIED
[2024-07-20] MEDS: Nicotine 14 MG PATCH.TD24 TRANSDERMA (09:07)
[2024-07-20] MEDS: Cholecalciferol (Vitamin D3) 25 MCG TABLET PO (09:08)
[2024-07-20] MEDS: oxyCODONE HCl Immed Release 5 MG TABLET PO ×2 (09:08→16:31)
[2024-07-20] MEDS: Acetaminophen 325 MG TABLET 650 MG PO ×2 (09:08→16:32)
[2024-07-20] MEDS: dexAMETHasone sod phosphate 4 MG/ML VIAL 6 MG IVPUSH (09:08)
[2024-07-20] MEDS: 0.9 % Sodium Chloride Flush 3 ML SYRINGE IVFLUSH ×3 (09:09→20:05)
[2024-07-20] MEDS: guaiFENesin 200 MG/10 ML 10 ML LIQUID PO ×2 (10:27→16:31)
[2024-07-20 13:24] LABS: PTT Heparin Drip 65.2 SEC (53-77.9)
--- NOTE | 2024-07-20 14:24 | P.PNIM_ITS ---
Subjective Subjective Date of Service: 07/20/24 Interval History: No acute issues overnight. Breathing only bothersome with movement Review of Systems Denies chest pain Denies shortness of breath acceptable with exertion Denies nausea vomiting diarrhea Denies fever chills Physical Exam 2 Vital Signs: Vital Signs: Last Vital Signs Temp 96.8 F 07/20/24 11:05 Pulse 91 07/20/24 11:26 Resp 18 07/20/24 11:26 BP 128/85 07/20/24 11:05 Pulse Ox 96 07/20/24 11:05 O2 Del Method Nasal Cannula 07/20/24 11:05 O2 Flow Rate 2 07/20/24 11:05 BMI result Body Mass Index 59.8 Const: Other: Awake alert no acute distress Resp: Other: Diminished at bases otherwise clear Cardio: Other: No S4; positive S1-S2; no S3 murmurs rubs or gallops GI: Other: Obese nontender positive bowel sounds Extrem: Other: No edema bile Objective Data Active Medications Acetaminophen (Acetaminophen 325 Mg Tablet) 650 mg PO Q6H PRN PRN Reason: Pain, Mild (Pain Scale 1-3), fever or headache Last Admin: 07/20/24 09:08 Dose: 650 mg Documented By: ADRIEN Albuterol/Ipratropium (Albuterol/Iprat 2.5/0.5mg 3 Ml Ampul.Neb) 3 ml INHALE RQ4H WHILE AWAKE [facility] Last Admin: 07/20/24 11:26 Dose: 3 ml Documented By: BRENDA Albuterol/Ipratropium (Albuterol/Iprat 2.5/0.5mg 3 Ml Ampul.Neb) 3 ml INHALE RQ4H WHILE AWAKE PRN PRN Reason: Shortness of Breath/Wheezing Calcium Carbonate (Calcium Carbonate 750 Mg Tab.Chew) 750 mg PO Q4H PRN PRN Reason: Heartburn Dexamethasone Sodium Phosphate (Dexamethasone Sod Phosphate 4 Mg/Ml Vial) 6 mg IVPUSH DAILY [facility] Last Admin: 07/20/24 09:08 Dose: 6 mg Documented By: ADRIEN Guaifenesin (Guaifenesin 200 Mg/10 Ml 10 Ml Liquid) 10 ml PO Q4H PRN PRN Reason: Cough Last Admin: 07/20/24 10:27 Dose: 10 ml Documented By: ADRIEN Heparin Sodium (Porcine) (Heparin Sodium,Porcine 5,000 Unit/Ml Vial) 5,600 unit 40 unit/kg (5600 unit) IVPUSH PROTOCOL BOLUS PRN; Protocol PRN Reason: 40 unit/kg - Heparin Protocol Last Admin: 07/19/24 08:54 Dose: 5,600 unit Documented By: MAYELA Heparin Sodium (Porcine) (Heparin Sodium,Porcine 5,000 Unit/Ml Vial) 10,000 unit IVPUSH PROTOCOL BOLUS PRN; Protocol PRN Reason: 80 unit/kg - Heparin Protocol Heparin Sodium/Sodium Chloride (Heparin Sodium,Porcine/1/2ns) 25,000 unit in 250 mls @ 0 mls/hr IVCONT .Q0M [facility]; Protocol Last Titration: 07/20/24 13:10 Dose: 12 units/kg/hr, 16.68 mls/hr Documented By: ADRIEN Co-signed By: CAMILO Magnesium Hydroxide (Milk Of Magnesia 30 Ml Oral.Susp) 30 ml PO DAILY PRN PRN Reason: Constipation Melatonin (Melatonin 3 Mg Tablet) 6 mg PO BEDTIME PRN PRN Reason: Insomnia Last Admin: 07/19/24 20:19 Dose: 6 mg Documented By: WAI Nicotine (Nicotine 14 Mg Patch.Td24) 14 mg TRANSDERMA DAILY [facility] Last Admin: 07/20/24 09:07 Dose: 14 mg Documented By: ADRIEN Non-Formulary Medication (Erlotinib) 150 mg PO DAILY [facility] Ondansetron HCl (Ondansetron Hcl 4 Mg/2 Ml Vial) 4 mg IVPUSH Q8H PRN PRN Reason: Nausea and Vomiting Oxycodone HCl (Oxycodone Hcl Immed Release 5 Mg Tablet) 5 mg PO Q4H PRN PRN Reason: Pain, Moderate(Pain Scale 4-6) Last Admin: 07/20/24 09:08 Dose: 5 mg Documented By: ADRIEN Sodium Chloride (0.9 % Sodium Chloride Flush 3 Ml Syringe) 3 ml IVFLUSH QSHIFT [facility] Last Admin: 07/20/24 09:09 Dose: 3 ml Documented By: ADRIEN Vitamin D (Cholecalciferol (Vitamin D3) 25 Mcg Tablet) 25 mcg PO DAILY [facility] Last Admin: 07/20/24 09:08 Dose: 25 mcg Documented By: ADRIEN Labs 07/20/24 07:10 07/20/24 07:10 Labs: Laboratory Results - last 24 hr 07/19/24 07/19/24 07/19/24 15:04 16:54 17:10 MCV MCH MCHC RDW Plt Count MPV Immature Gran % (Auto) Neut % (Auto) Lymph % (Auto) [place] % (Auto) Eos % (Auto) Baso % (Auto) Lymph # (Auto) [place] # (Auto) Eos # (Auto) Baso # (Auto) Abs Immat Gran (auto) Absolute Neuts (auto) Absolute Nucleated RBC Nucleated RBC % (auto) Smear Tech's Comments Hold Purple Top SEE NOTE aPTT Heparin Protocol 155.5 H* D 68.5 D Anion Gap Estim Creat Clear Calc Estimated GFR Fasting Glucose Calcium Total Bilirubin AST ALT Alkaline Phosphatase Total Protein Albumin 07/20/24 07/20/24 07/20/24 01:01 07:10 13:11 MCV 82.9 MCH 27.0 MCHC 32.6 RDW 16.5 H Plt Count 454 H MPV 8.4 L Immature Gran % (Auto) 0.6 H Neut % (Auto) 65.9 Lymph % (Auto) 28.2 [place] % (Auto) 4.9 Eos % (Auto) 0.2 Baso % (Auto) 0.2 Lymph # (Auto) 5.1 H [place] # (Auto) 0.9 Eos # (Auto) 0.0 Baso # (Auto) 0.0 Abs Immat Gran (auto) 0.11 H Absolute Neuts (auto) 12.0 H Absolute Nucleated RBC 0.000 Nucleated RBC % (auto) 0.0 Smear Tech's Comments VERIFIED Hold Purple Top aPTT Heparin Protocol 86.0 H D 64.3 D 65.2 Anion Gap 16 Estim Creat Clear Calc 135.4 Estimated GFR > 60 Fasting Glucose 79 Calcium 10.3 H Total Bilirubin 0.2 AST 24 ALT 34 H Alkaline Phosphatase 77 Total Protein 8.4 H Albumin 4.1 Microbiology Microbiology Results: Microbiology 07/18/24 11:10 Blood Culture - Preliminary Blood - Venous No growth after 48 hours. 07/18/24 10:59 Blood Culture - Preliminary Blood - Venous No growth after 48 hours. Assessment and Plan (1) Acute hypoxic respiratory failure: Status: Acute (2) Pulmonary emboli: Status: Acute Plan Pt is a 23-year-old female with a PMH significant for?hereditary leiomyomatosis, renal cell cancer syndrome on biweekly chemo, renal cell carcinoma s/p left nephrectomy 2022, HTN, moderate persistent asthma, and depression who presents to the ED with?SOB and difficulty breathing since yesterday. Pt will be admitted to the hospital for treatment and further evaluation of acute hypoxic respiratory failure in the setting of pulmonary embolism. 1.Acute hypoxic respiratory failure in the setting of acute pulmonary emboli (subsegmental left lower lobe) -continue heparin drip until a.m. (48hrs) -Switch to Eliquis in am -O2 titrate to maintain sats greater than 92% 2.Multifocal pneumonia meeting SIRS criteria -ceftriaxone/doxycycline DC secondary to positive viral panel -treat clinically 3.Renal cell carcinoma -erlotinib 4.Moderate persistent asthma -examined today like asthma exacerbation -switch to methylprednisolone Full Code Heparin drip Requires ongoing hospitalization for IV heparin to treat acute pulmonary emboli Quality Stroke Does the patient have a stroke diagnosis?: No VTE Prior VTE?: No VTE Risk Level:: Medical - moderate - high VTE Device Contraindication: Treatment Not Indicated VTE Drug Contraindication: N/A - Med Ordered
[2024-07-20] MEDS: methylPREDNISolone Sod Succ 125 MG/2 ML VIAL 60 MG IVPUSH ×2 (16:33→20:03)
[2024-07-20] MEDS: Melatonin 3 MG TABLET 6 MG PO (20:03)
[2024-07-21] VITALS (10 sets, daily range): BP systolic 117–156; BP diastolic 80–94; PULSE 61–98; RESP 16–20; TEMP 35.9–36.8; O2SAT 92–95
[2024-07-21] MEDS: methylPREDNISolone Sod Succ 125 MG/2 ML VIAL 60 MG IVPUSH ×2 (03:13→06:59)
[2024-07-21] MEDS: Acetaminophen 325 MG TABLET 650 MG PO ×3 (05:48→23:01)
[2024-07-21 06:06] LABS: MANUAL DIFF FLAG NO
[2024-07-21 06:09] LABS: Basophils Percent Auto 0.1 % (0-2); Hematocrit 44.8 % (37.0-47.0); Hemoglobin 14.5 g/dl (12.0-16.0); Imm Gran Abs Auto 0.25 X10*3/uL (0.00-0.03); Imm Gran Pct Auto 1.3 % (0.0-0.4); Lymphocytes Absolute Auto 2.8 X10*3/uL (1.2-4.9); Mean Corpuscular HGB Conc 32.4 g/dl (31.0-35.0); Mean Corpuscular Hemoglobin 27.1 pg (27.0-33.0); Mean Corpuscular Volume 83.6 fL (80.0-98.0); Mean Platelet Volume 8.5 fL (9.4-12.3); Monocytes Absolute Auto 0.4 X10*3/uL (0.1-1.2); Monocytes Percent Auto 2.3 % (2-11); Neutrophils Absolute Auto 15.2 x10*3/uL (2.0-8.3); Neutrophils Percent Auto 81.3 % (45-73); Platelet Count 491 X10*3/uL (160-400); Red Blood Count 5.36 X10*6/uL (4.20-5.50); Red Cell Distribution Width 16.5 % (11.0-16.0); White Blood Count 18.6 X10*3/uL (4.8-10.8)
[2024-07-21 06:31] LABS: Alanine Aminotransferase 38 U/L (0-31); Albumin Level 4.2 g/dL (3.5-5.0); Alkaline Phosphatase 79 U/L (39-117); Anion Gap 17 (12-20); Aspartate Amino Transferase 20 U/L (5-31); Bilirubin Total 0.1 mg/dL (0.0-1.0); Blood Urea Nitrogen 25 mg/dL (9-16); Carbon Dioxide 20 mmol/L (22-29); Chloride 105 mmol/L (96-108); Creatinine Clr Calc Pharmacy 147.4; Estimated Glomerular Filt Rate > 60; Glucose Fasting 110 mg/dL (60-99); Potassium 4.3 mmol/L (3.3-5.1); Sodium 138 mmol/L (135-145); Total Protein 8.7 g/dL (6.5-8.0)
[2024-07-21] MEDS: guaiFENesin 200 MG/10 ML 10 ML LIQUID PO (06:59)
[2024-07-21] MEDS: 0.9 % Sodium Chloride Flush 3 ML SYRINGE IVFLUSH ×2 (06:59→13:30)
[2024-07-21] MEDS: Cholecalciferol (Vitamin D3) 25 MCG TABLET PO (08:07)
[2024-07-21] MEDS: Nicotine 14 MG PATCH.TD24 TRANSDERMA (08:07)
[2024-07-21] MEDS: Albuterol/Iprat 2.5/0.5MG 3 ML AMPUL.NEB INHALE ×4 (08:53→19:59)
[2024-07-21] MEDS: oxyCODONE HCl Immed Release 5 MG TABLET PO ×2 (10:53→16:08)
[2024-07-21] MEDS: Apixaban 5 MG TABLET 10 MG PO ×2 (11:11→19:47)
--- NOTE | 2024-07-21 12:44 | P.PNIM_ITS ---
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 Review of Systems All other system reviewed and are negative Physical Exam 2 Vital Signs: Vital Signs: Last Vital Signs Temp 98.2 F 07/21/24 11:19 Pulse 87 07/21/24 11:51 Resp 18 07/21/24 11:51 BP 140/87 H 07/21/24 11:19 Pulse Ox 93 07/21/24 11:19 O2 Del Method Room Air 07/21/24 11:19 O2 Flow Rate 1 07/21/24 04:00 BMI result Body Mass Index 59.8 Const: Other: General awake alert x3, resting comfortably in no acute distress. Moist mucous membranes Neck no JVD. CVS regular rate rhythm, Respiratory lungs diminished, expiratory wheeze, no respiratory distress. Gastrointestinal abdomen soft, non tender, bowel sounds audible. Extremities no edema. Neuro non focal Skin no rash Psych appropriate affect Objective Data Active Medications Acetaminophen (Acetaminophen 325 Mg Tablet) 650 mg PO Q6H PRN PRN Reason: Pain, Mild (Pain Scale 1-3), fever or headache Last Admin: 07/21/24 05:48 Dose: 650 mg Documented By: WAI Albuterol/Ipratropium (Albuterol/Iprat 2.5/0.5mg 3 Ml Ampul.Neb) 3 ml INHALE RQ4H WHILE AWAKE [facility] Last Admin: 07/21/24 11:51 Dose: 3 ml Documented By: UMA Albuterol/Ipratropium (Albuterol/Iprat 2.5/0.5mg 3 Ml Ampul.Neb) 3 ml INHALE RQ4H WHILE AWAKE PRN PRN Reason: Shortness of Breath/Wheezing Apixaban (Apixaban 5 Mg Tablet) 10 mg PO BID [facility] Stop: 07/27/24 21:01 Last Admin: 07/21/24 11:11 Dose: 10 mg Documented By: THANH-RIVLA Calcium Carbonate (Calcium Carbonate 750 Mg Tab.Chew) 750 mg PO Q4H PRN PRN Reason: Heartburn Guaifenesin/Dextromethorphan (Guaifenesin Dm 200/20/10 Ml 10 Ml Syrup) 10 ml PO QID [facility] Magnesium Hydroxide (Milk Of Magnesia 30 Ml Oral.Susp) 30 ml PO DAILY PRN PRN Reason: Constipation Melatonin (Melatonin 3 Mg Tablet) 6 mg PO BEDTIME PRN PRN Reason: Insomnia Last Admin: 07/20/24 20:03 Dose: 6 mg Documented By: WAI Methylprednisolone Sodium Succinate (Methylprednisolone Sod Succ 125 Mg/2 Ml Vial) 60 mg IVPUSH Q6H [facility] Last Admin: 07/21/24 06:59 Dose: 60 mg Documented By: ADRIEN Nicotine (Nicotine 14 Mg Patch.Td24) 14 mg TRANSDERMA DAILY [facility] Last Admin: 07/21/24 08:07 Dose: 14 mg Documented By: ADRIEN Non-Formulary Medication (Erlotinib) 150 mg PO DAILY [facility] Ondansetron HCl (Ondansetron Hcl 4 Mg/2 Ml Vial) 4 mg IVPUSH Q8H PRN PRN Reason: Nausea and Vomiting Oxycodone HCl (Oxycodone Hcl Immed Release 5 Mg Tablet) 5 mg PO Q4H PRN PRN Reason: Pain, Moderate(Pain Scale 4-6) Last Admin: 07/21/24 10:53 Dose: 5 mg Documented By: ADRIEN Sodium Chloride (0.9 % Sodium Chloride Flush 3 Ml Syringe) 3 ml IVFLUSH QSHIFT [facility] Last Admin: 07/21/24 06:59 Dose: 3 ml Documented By: ADRIEN Vitamin D (Cholecalciferol (Vitamin D3) 25 Mcg Tablet) 25 mcg PO DAILY [facility] Last Admin: 07/21/24 08:07 Dose: 25 mcg Documented By: ADRIEN Labs 07/21/24 05:33 07/21/24 05:33 Labs: Laboratory Results - last 24 hr 07/20/24 07/21/24 13:11 05:33 MCV 83.6 MCH 27.1 MCHC 32.4 RDW 16.5 H Plt Count 491 H MPV 8.5 L Immature Gran % (Auto) 1.3 H Neut % (Auto) 81.3 H Lymph % (Auto) 15.0 L [place] % (Auto) 2.3 Eos % (Auto) 0.0 Baso % (Auto) 0.1 Lymph # (Auto) 2.8 [place] # (Auto) 0.4 Eos # (Auto) 0.0 Baso # (Auto) 0.0 Abs Immat Gran (auto) 0.25 H Absolute Neuts (auto) 15.2 H Absolute Nucleated RBC 0.000 Nucleated RBC % (auto) 0.0 aPTT Heparin Protocol 65.2 55.0 Anion Gap 17 Estim Creat Clear Calc 147.4 Estimated GFR > 60 Fasting Glucose 110 H Calcium 10.0 Total Bilirubin 0.1 AST 20 ALT 38 H Alkaline Phosphatase 79 Total Protein 8.7 H Albumin 4.2 Microbiology Microbiology Results: Microbiology 07/18/24 11:10 Blood Culture - Preliminary Blood - Venous No growth after 48 hours. 07/18/24 10:59 Blood Culture - Preliminary Blood - Venous No growth after 48 hours. Assessment and Plan (1) Acute hypoxic respiratory failure: Status: Acute (2) Pulmonary emboli: Status: Acute Plan 23-year-old female with a PMH significant for?hereditary leiomyomatosis, renal cell cancer syndrome on biweekly chemo, renal cell carcinoma s/p left nephrectomy 2022, HTN, moderate persistent asthma, and depression who presents to the ED with?SOB and difficulty breathing since yesterday. Pt will be admitted to the hospital for treatment and further evaluation of acute hypoxic respiratory failure in the setting of pulmonary embolism. 1.Acute hypoxic respiratory failure in the setting of acute pulmonary emboli (subsegmental left lower lobe) -DC IV heparin drip, transitioned to Eliquis 10 mg twice daily for 7 days followed by 5 mg b.i.d. -O2 titrate to maintain sats greater than 92%, overnight finger oximetry -recommend outpatient follow-up with pulmonology for CPAP 2. Sepsis due to viral infection COVID/entero and rhino virus with tachycardia leukocytosis and tachypnea Symptomatic treatment with cough medication oxygen support 3.Renal cell carcinoma -erlotinib 4.Moderate persistent asthma with acute exacerbation -wean IV steroids 40 mg q.8 hours, continue updraft treatment, place on scheduled cough medications, follow clinical course, out of bed to chair 5. Tobacco use disorder continue nicotine patch 6. Class 3 morbid obesity recommend low-calorie diet Full Code Eliquis Requires ongoing hospitalization for treatment of acute hypoxic respiratory failure due to pulmonary emboli and acute asthma exacerbation requiring IV steroids and close clinical monitoring. Quality Stroke Does the patient have a stroke diagnosis?: No VTE Prior VTE?: No VTE Risk Level:: Medical - moderate - high VTE Device Contraindication: Treatment Not Indicated VTE Drug Contraindication: N/A - Med Ordered
[2024-07-21] MEDS: guaiFENesin DM 200/20/10 ML 10 ML SYRUP PO ×3 (13:29→19:48)
[2024-07-21] MEDS: methylPREDNISolone Sod Succ 125 MG/2 ML VIAL 40 MG IVPUSH ×2 (13:30→19:47)
--- NOTE | 2024-07-21 15:01 | PC.NURSE ---
Patient reports is not taking erlotinib at the moment after oncologist told her to hold it until feels better and is d/c from hospital. Pharmacy ([facility]) aware at 1501 via [facility].
[2024-07-21] MEDS: Melatonin 3 MG TABLET 6 MG PO (20:42)
[2024-07-22] VITALS: BP 144/74; PULSE 71; RESP 18; TEMP 36.6; O2SAT 94
[2024-07-22] MEDS: 0.9 % Sodium Chloride Flush 3 ML SYRINGE IVFLUSH ×2 (00:51→09:31)
[2024-07-22 04:00] VITALS: BP 135/85; PULSE 77; RESP 16; TEMP 36.1; O2SAT 95
[2024-07-22] MEDS: methylPREDNISolone Sod Succ 125 MG/2 ML VIAL 40 MG IVPUSH ×2 (04:58→13:40)
[2024-07-22] MEDS: oxyCODONE HCl Immed Release 5 MG TABLET PO (06:48)
[2024-07-22 07:48] VITALS: BP 140/84; PULSE 72; RESP 17; TEMP 36.2; O2SAT 95
[2024-07-22 08:42] VITALS: PULSE 72; RESP 17
[2024-07-22] MEDS: Albuterol/Iprat 2.5/0.5MG 3 ML AMPUL.NEB INHALE ×2 (08:42→11:27)
[2024-07-22] MEDS: Nicotine 14 MG PATCH.TD24 TRANSDERMA (09:32)
[2024-07-22] MEDS: guaiFENesin DM 200/20/10 ML 10 ML SYRUP PO ×2 (09:34→13:43)
[2024-07-22] MEDS: Cholecalciferol (Vitamin D3) 25 MCG TABLET PO (09:34)
[2024-07-22] MEDS: Apixaban 5 MG TABLET 10 MG PO (09:34)
[2024-07-22] MEDS: Milk of Magnesia 30 ML ORAL.SUSP PO (09:38)
[2024-07-22 11:27] VITALS: PULSE 72; RESP 17
[2024-07-22 11:49] VITALS: BP 122/70; PULSE 83; RESP 17; TEMP 36.4; O2SAT 92
--- NOTE | 2024-07-22 12:47 | P.DS_ITS ---
DS: Providers Provider Date of Service: 07/22/24 Date of admission: 07/18/24 12:07 Date of discharge: 07/22/24 Primary care physician: Noris Keen MD DS: Diagnosis Discharge Diagnosis (1) Acute hypoxic respiratory failure: Status: Acute (2) Pulmonary emboli: Status: Acute DS: Summary Hospital Course Hospital Course: History of presenting illness: Date of Service: 07/18/24 Attending physician on admission: Mitchell Chin Chief Complaint: SOB Pt is a 23-year-old female with a PMH significant for?hereditary leiomyomatosis, renal cell cancer syndrome on biweekly chemo, renal cell carcinoma s/p left nephrectomy 2022, HTN, moderate persistent asthma, and depression who presents to the ED with?SOB and difficulty breathing since yesterday. Patient reports she developed pain in her left side that radiated to her back on Monday evening. Contacted her oncologist on Monday who thought it might be associated with her cancer and patient was started on oxycodone. Pain persisted on Monday and was not controlled with analgesics, particularly associated with breathing deeply. Last night patient began to feel short of breath and had difficulty breathing that was not alleviated with home inhalers. Symptoms worsened this morning and patient was having difficulty talking or taking a deep breath. Occasional mostly non-productive cough. No fever, chills, N/V/D. Denies any rec ent prolonged travel, has been active and ambulating at baseline. No lower leg swelling or calf pain. In the ED pt was tachycardic up to 122, tachypneic up to 21, and hypertensive to 154/103, satting at 88% on RA. Labs were significant for leukocytosis of 12.6 and initial troponin 39.4. H&H stable and baseline. No significant electrolyte abnormalities. Renal function WNL. Lactic acid 1.6. Tested negative for flu, RSV, and COVID. CTA found evidence concerning for acute pulmonary artery emboli and left lower lobe as well as acute airspace disease/multifocal pneumonia and probable lymphoproliferative disorder. CXR showed no acute cardiopulmonary abnormalities. EKG demonstrated sinus tachycardia of [address] elevations or depressions. In the ED pt was treated with DuoNebs, Solu-Medrol, Mag sulfate, ceftriaxone, doxycycline, and started on a heparin drip. Pt will be admitted to the hospital for treatment and further evaluation of acute hypoxic respiratory failure in the setting of pulmonary embolism. Hospital course: 23-year-old female with a PMH significant for?hereditary leiomyomatosis, renal cell cancer syndrome on biweekly chemo, renal cell carcinoma s/p left nephrectomy 2022, HTN, moderate persistent asthma, and depression who presents to the ED with?SOB and difficulty breathing and admitted with acute hypoxic respiratory failure in the setting of pulmonary embolism. 1.Acute hypoxic respiratory failure in the setting of acute pulmonary emboli (subsegmental left lower lobe), and treated with IV heparin for 48 hours subsequently transitioned to Eliquis loading dose, hypoxia resolved patient is feeling significantly better recommend outpatient follow-up with pulmonology since patient concern about sleep apnea, recommend low-calorie diet, patient also diagnosed to have Sepsis due to viral infection COVID/entero and rhino virus with tachycardia, leukocytosis and tachypnea, treated with cough medication, oxygen support, all symptoms resolved, she was also noted to have acute exacerbation of moderate persistent asthma, treated with IV steroids scheduled and as needed updraft treatment, all symptoms of shortness of breath and cough have resolved, she is recommended to take prednisone 10 mg for 5 more days and continue albuterol inhaler as needed for shortness of breath and take cough medication as needed. 2. In regard to Renal cell carcinoma continue erlotinib. 3 for Tobacco use disorder counseling done and recommend to continue nicotine patch. Time Attestation Discharge Coordination Time (in mins): 40 Quality: Safe Use of Opioids Does Pt have an Active Cancer Diagnosis on the Problem List?: No Quality: Stroke Does the patient have a stroke diagnosis?: No Physical Exam Vital Signs: Vital Signs: Last Vital Signs Temp 97.6 F 07/22/24 11:49 Pulse 83 07/22/24 11:49 Resp 17 07/22/24 11:49 BP 122/70 07/22/24 11:49 Pulse Ox 92 07/22/24 11:49 O2 Del Method Room Air 07/22/24 11:49 O2 Flow Rate 2 07/22/24 04:00 BMI result Body Mass Index 59.8 Const: Other: General awake alert x3, resting comfortably in no acute distress. Moist mucous membranes Neck no JVD. CVS regular rate rhythm, Respiratory lungs diminished, clear, no respiratory distress. Gastrointestinal abdomen soft, non tender, bowel sounds audible. Extremities no edema. Neuro non focal Skin no rash Psych appropriate affect DS: Data Data Completed and Pending Labs on day of discharge: Preliminary micro results at discharge 07/18/24 11:10 Blood Culture - Preliminary Blood - Venous No growth after 48 hours. 07/18/24 10:59 Blood Culture - Preliminary Blood - Venous No growth after 48 hours. Discharge Plan Discharge Anticipated Discharge Date/Time: 07/22/24 12:42 Patient Disposition: Home, Self-Care Discharge Diagnosis: Acute hypoxic respiratory failure Pulmonary embolism COVID-19 infection Referrals: Noris Keen MD [Primary Care Provider] - 1 Week Discharge Medications: New nicotine 14 mg/24 hr Patch 24 Hour 14 mg transdermal DAILY Qty: 3 0RF dextromethorphan-guaifenesin 10-100 mg/5 mL Syrup 10 ml PO QID PRN (Reason: cough) Qty: 237 0RF Eliquis 5 mg Tablet 10 mg PO BID Qty: 144 0RF Rx Instructions: Take Eliquis 10mg (5 mg 2 tablets twice daily) every 12 hours for 6 more days then take Eliquis 5 mg 1 tablet twice daily prednisone 10 mg tablet 10 mg PO DAILY Qty: 5 0RF Continued betamethasone dipropionate 0.05 % cream 1 appl topical BID albuterol sulfate [Ventolin HFA] 90 mcg/actuation HFA aerosol inhaler 2 puff inhalation Q4H PRN (Reason: Wheezing) oxycodone 5 mg tablet 5 mg PO Q4H PRN (Reason: pain) cholecalciferol (vitamin D3) [Vitamin D3] 25 mcg (1,000 unit) capsule 25 mcg PO DAILY erlotinib 150 mg tablet 150 mg PO DAILY fluticasone propion-salmeterol [Advair HFA] 230-21 mcg/actuation HFA aerosol inhaler 2 puff inhalation BID acetaminophen 325 mg Tablet 325 mg PO QID PRN (Reason: Pain (Scale Score 1-3)) Discharge Orders: Discharge Order (Routine); Ordered 07/22/24 Ordered By: Cesar Don Diet: Advance to usual diet Activity on Discharge: As tolerated Stand Alone Forms: Patient Portal Discharge page Print Language: Micronesian Care Plan Goals: Hypoxia resolved In regard to pulmonary embolism take Eliquis 10 mg twice daily for 6 more days then 5 mg twice daily Take prednisone 10 mg as directed Use albuterol inhaler 2 puffs q.4 hours as needed for shortness of breath Strongly recommend to abstain from smoking Health Concerns: Renal cell ca continue chemotherapy Plan of Treatment: Follow-up with primary care physician Assessment: As above
--- NOTE | 2024-07-22 12:48 | MHC.CM.PN ---
Pt. has been medically cleared for DC, she will to home via private transport, plan is home, self care.
== END 2024-07-22 14:15 | disposition home or self-care (01) | DRG 720 ==
LOC: HO.ED 08:20 → HO.EDOVER 12:08 → HO.IMC 16:15
PROVIDERS: Hospitalist; Internal Medicine; Physician Assistant Medical; Student in an Organized Health Care Education/Training Program; Admitting Provider Student in an Organized Health Care Education/Training Program; Emergency Provider Student in an Organized Health Care Education/Training Program; PCP Internal Medicine; Visit Provider Hospitalist
DX: A41.89 Other specified sepsis (principal); I26.99 Other pulmonary embolism without acute cor pulmonale; J96.01 Acute respiratory failure with hypoxia; U07.1 COVID-19; J18.9 Pneumonia, unspecified organism; Z68.43 Body mass index [BMI] 50.0-59.9, adult; J45.41 Moderate persistent asthma with (acute) exacerbation; B97.10 Unspecified enterovirus as the cause of diseases classified elsewhere; E66.813 Obesity, class 3; Z71.3 Dietary counseling and surveillance; C64.2 Malignant neoplasm of left kidney, except renal pelvis; F17.210 Nicotine dependence, cigarettes, uncomplicated; Z90.5 Acquired absence of kidney; Z71.6 Tobacco abuse counseling; Z79.51 Long term (current) use of inhaled steroids; Z79.899 Other long term (current) drug therapy
CPT/HCPCS: 0241U; 36415; 71045; 71275; 80048; 80053; 80076; 82803; 83605; 83690; 83735; 83880; 84484; 85025; 85610; 85730; 87040; 87633; 93005; 93970; 94640; 99285; J0696; J1100; J1644; J2919; J3475; Q9967

== ENCOUNTER → 2024-07-18 07:48 | Outpatient (BNV) | payer OTHER, SELFPAY | PROVIDERS: Emergency Provider Student in an Organized Health Care Education/Training Program; PCP Internal Medicine; Visit Provider Radiology Diagnostic Radiology | DX: R00.0 Tachycardia, unspecified (principal); I26.99 Other pulmonary embolism without acute cor pulmonale | CPT/HCPCS: 71275; 93970 ==

== ENCOUNTER → 2024-07-18 10:29 | Outpatient (BNV) | payer OTHER, SELFPAY | PROVIDERS: Admitting Provider Student in an Organized Health Care Education/Training Program; Emergency Provider Student in an Organized Health Care Education/Training Program; PCP Internal Medicine; Visit Provider Internal Medicine Cardiovascular Disease | DX: R00.0 Tachycardia, unspecified (principal) | CPT/HCPCS: 93010 ==

== ENCOUNTER → 2024-07-18 12:07 | Outpatient (BNV) | payer OTHER, SELFPAY | PROVIDERS: Admitting Provider Student in an Organized Health Care Education/Training Program; Emergency Provider Student in an Organized Health Care Education/Training Program; PCP Internal Medicine; Visit Provider Student in an Organized Health Care Education/Training Program | DX: J96.01 Acute respiratory failure with hypoxia (principal); I26.99 Other pulmonary embolism without acute cor pulmonale | CPT/HCPCS: 99223; 99232; 99239 ==

== ENCOUNTER 2024-10-14 09:38 | Emergency (ER) | payer OTHER, SELFPAY ==
--- NOTE | ~2024-10-14 | XR_ITS ---
EXAMINATION: XR CHEST 2 VIEWS HISTORY: pain COMPARISON: Comparison is made with the prior examination dated 07/18/2024 and with a chest CT dated 07/18/2024. FINDINGS: PA and lateral views of the chest are submitted. A left-sided port is unchanged in position. There is a tiny opacity at the right lung base which could represent a small focus of pneumonia. There is linear scarring in the left midlung zone. There is no pleural effusion, pneumothorax, or pulmonary vascular congestion. The heart is normal in size. There is a lobulated contour of the right paratracheal and right hilar regions, compatible with lymphadenopathy.. There is degenerative disc disease of the spine. XR/XR chest 2V IMPRESSION: 1. Tiny opacity at the right lung base which could represent early pneumonia. Follow-up is recommended. 2. Right paratracheal and right hilar lymphadenopathy as seen on chest CT. Electronically signed by: Kingsley Monroy MD 10/14/2024 11:45 AM [facility]
[2024-10-14 09:49] VITALS: BP 143/96; PULSE 82; O2SAT 98
[2024-10-14 11:00] VITALS: BP 152/95; PULSE 86; RESP 20; TEMP 36.9; O2SAT 97; BMI 57.8
--- NOTE | 2024-10-14 11:05 | ED_ITS ---
HPI - General Adult General Chief complaint: Dyspnea Stated complaint: COUGH X1W PER EMS Time Seen by Provider: 10/14/24 17:52 Source: patient, RN notes reviewed and old records reviewed Mode of arrival: ambulatory Limitations: no limitations History of Present Illness ED Provider: Sabra JUAN narrative: 23-year-old female with a past medical history significant for stage IV renal cancer status post nephrectomy, PE on Eliquis presents for evaluation of fevers Patient reports that her son was diagnosed with the flu last week in his just improving. The patient reports that she has been sick since yesterday She reports coughing, weakness, body aches, headache. She follows with oncology in [place] Denies any abdominal pain, nausea vomiting, diarrhea. No other complaints or concerns at this time Related Data Home Medications ?Medication ?Instructions ?Recorded ?Confirmed acetaminophen 325 mg tablet 325 mg PO QID PRN Pain (Scale 07/18/24 07/18/24 Score 1-3) albuterol sulfate 90 mcg/actuation 2 puff inhalation Q4H PRN Wheezing 07/18/24 07/18/24 aerosol inhaler (Ventolin HFA) betamethasone dipropionate 0.05 % 1 appl topical BID 07/18/24 07/18/24 topical cream cholecalciferol (vitamin D3) 25 25 mcg PO DAILY 07/18/24 07/18/24 mcg (1,000 unit) capsule (Vitamin D3) erlotinib 150 mg tablet 150 mg PO DAILY 07/18/24 07/18/24 fluticasone propionate 230 2 puff inhalation BID 07/18/24 07/18/24 mcg-salmeterol 21 mcg/actuation HFA inhaler (Advair HFA) oxycodone 5 mg tablet 5 mg PO Q4H PRN pain 07/18/24 07/18/24 Previous Rx's ?Medication ?Instructions ?Recorded apixaban 5 mg tablet (Eliquis) 10 mg (2 x 5 mg) PO BID #144 tabs 07/22/24 dextromethorphan-guaifenesin 10 10 ml PO QID PRN cough #237 mL 07/22/24 mg-100 mg/5 mL oral syrup nicotine 14 mg/24 hr daily 14 mg transdermal DAILY #3 ea 07/22/24 transdermal patch prednisone 10 mg tablet 10 mg PO DAILY #5 tabs 07/22/24 azithromycin 250 mg tablet See Rx Instructions PO .COMPLEX #6 10/14/24 tabs cefuroxime axetil 500 mg tablet 500 mg PO Q12H #14 tabs 10/14/24 oseltamivir 75 mg capsule (Tamiflu) 75 mg PO Q12H 5 days #10 caps 10/14/24 Allergies Allergy/AdvReac Type Severity Reaction Status Date / Time nystatin Allergy Hives Verified 10/14/24 11:05 amoxicillin AdvReac Vomiting Verified 10/14/24 11:05 Review of Systems 2 Constitutional: Constitutional: Reports body ache(s), Reports chills, Reports fever(s) and Reports headache(s) ENT: Reports headache(s) Respiratory: Respiratory: Reports cough Gastrointestinal: Gastrointestinal: Denies abdominal pain, Denies nausea and Denies vomiting Musculoskeletal: Musculoskeletal: Reports back pain, Reports myalgias and Reports muscle weakness Neurologic: Reports headache(s) [facility] Past Medical History Medical History (Updated 10/14/24 @ 17:54 by Reid Montaño) HTN (hypertension) Depression Moderate persistent asthma Status post nephrectomy 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[facility]) Social History Social History Housing: Apartment Patient Tobacco Use Status: Current everyday Tobacco user Tobacco use type: Cigarette Substance Use Type: Marijuana Advance Directives: No Advance Directives Information Provided: Yes Advance Directives Date on File: 07/18/24 Do you have a plan to hurt others: No Plan service: No Physical Exam ED Vital Signs: Vital Signs - 24 hr 10/14/24 11:00 10/14/24 17:46 10/14/24 17:52 Temperature 98.4 F 98.9 F 98.9 F Pulse Rate 86 88 88 Respiratory Rate 20 18 18 Blood Pressure 152/95 H 151/96 H 151/96 H Pulse Oximetry 97 97 97 Oxygen Delivery Method Room Air Room Air Room Air BMI result Body Mass Index 57.8 Const General: healthy appearing, comfortable, no acute distress, alert and awake Nutritional Appearance: well nourished Orientation/consciousness: patient oriented x3 HENMT Head: Yes normocephalic and Yes atraumatic Eyes Eyelids: Yes eyelids normal Conjunctivae: conjunctivae normal Sclerae: sclerae normal Corneas: corneas normal Pupils: Equal, round and reactive pupils present EOM: EOMs intact bilaterally Neck Neck: Yes full ROM Resp Effort & Inspection: normal respiratory effort, able to speak in complete sentences and not labored Skin General skin exam: elasticity normal Neuro General: patient oriented x3 Cranial nerves: Yes Equal, round and reactive pupils present and Yes Bilaterally intact EOM present Cognition (Neuro): normal cognition Extrem Other: Moving all extremities well without any obvious deformities Course Course Course Narrative: RME, this is a rapid medical exam performed by Willie Montaño please refer to primary provider for complete H&P- 23-year-old female with past medical history significant for stage IV renal cancer status post nephrectomy, history of PE on Eliquis presents for evaluation of cough, congestion and flu-like symptoms. She reports that her son recently had the flu and the patient has been sick for the last week. She appears well, but due to medical history plan for labs, chest x- ray, viral swabs. Medical Decision Making Medical Decision Making [facility] Narrative: 23-year-old female presents for evaluation of flu-like symptoms. Her son was recently diagnosed with the flu. The patient's vital signs are stable in triage. She was slightly hypertensive but could be related to not feeling well. She is not septic, she has no leukocytosis. She does not have neutropenic fever as her white count is 10.4k. The patient is not hypoxic, tachypneic or tachycardic. Her chest x-ray shows questionable pneumonia at the right lung base. Given that she is immunocompromised we will assume this is a developing pneumonia and treat with azithromycin and cefuroxime due to amoxicillin allergy. We will also give Tamiflu as the patient is high risk. She will follow up with her oncologist. Discussed with the attending, Dr. Javier who agrees with plan Differential Diagnosis Differential Diagnoses: The differential diagnosis associated with the presentation includes Community-acquired pneumonia Influenza Bronchitis Upper respiratory infection COVID-19 Admission/Observation Consideration of admission/observation: Escalation of care including admission/observation considered Patient did not meet sepsis criteria, neutropenic fever criteria, hypoxia or respiratory distress Lab Data [facility] Lab Attestation statement: I reviewed the patient's lab results. As above 10/14/24 16:19 10/14/24 16:19 Labs: Lab Results 10/14/24 Range/Units 16:19 WBC 10.4 (4.8-10.8) X10*3/uL RBC 5.06 (4.20-5.50) X10*6/uL Hgb 13.3 (12.0-16.0) g/dl Hct 42.2 (37.0-47.0) % MCV 83.4 (80.0-98.0) fL MCH 26.3 L (27.0-33.0) pg MCHC 31.5 (31.0-35.0) g/dl RDW 16.0 (11.0-16.0) % Plt Count 455 H (160-400) X10*3/uL MPV 8.5 L (9.4-12.3) fL Immature Gran % (Auto) 0.4 (0.0-0.4) % Neut % (Auto) 66.0 (45-73) % Lymph % (Auto) 26.8 (20-40) % Gage % (Auto) 6.2 (2-11) % Eos % (Auto) 0.4 (0-4) % Baso % (Auto) 0.2 (0-2) % Lymph # (Auto) 2.8 (1.2-4.9) X10*3/uL Gage # (Auto) 0.7 (0.1-1.2) X10*3/uL Eos # (Auto) 0.0 (0.0-0.4) X10*3/uL Baso # (Auto) 0.0 (0.0-0.2) X10*3/uL Abs Immat Gran (auto) 0.04 H (0.00-0.03) X10*3/uL Absolute Neuts (auto) 6.9 (2.0-8.3) x10*3/uL Absolute Nucleated RBC 0.000 (0.0-0.012) X10*3/uL Nucleated RBC % (auto) 0.0 (0.0-0.2) /100WBC PT 13.3 H (10.9-12.4) SEC INR 1.1 (0.9-1.1) Sodium 142 (135-145) mmol/L Potassium 3.9 (3.3-5.1) mmol/L Chloride 106 (96-108) mmol/L Carbon Dioxide 26 (22-29) mmol/L Anion Gap 14 (12-20) BUN 9 (9-16) mg/dL Creatinine 0.75 (0.5-1.4) mg/dL Estim Creat Clear Calc 151.6 Estimated GFR > 60 Random Glucose 85 (60-115) mg/dL Calcium 9.4 (8.4-10.2) mg/dL Magnesium 2.0 (1.6-2.6) mg/dL Total Bilirubin 0.2 (0.0-1.0) mg/dL AST 31 (5-31) U/L ALT 23 (0-31) U/L Alkaline Phosphatase 69 (39-117) U/L Troponin I High Sens 16.2 D (<3.5-17.0) ng/L Total Protein 8.8 H (6.5-8.0) g/dL Albumin 4.0 (3.5-5.0) g/dL Lipase 9 (8-78) U/L Influenza Type A (PCR) POSITIVE A (Negative) Influenza Type B (PCR) NEGATIVE (Negative) RSV RNA Qual (PCR) NEGATIVE (Negative) SARS-CoV-2 RNA (RT-PCR) NEGATIVE (Negative) Independent Interpretation I performed an independent interpretation of an: Plain X-Ray Interpretation: Agree with Radiology interpretation right lower lung developing infiltrate Radiology Impression Discussion of test interpretation with radiology: I have reviewed the radiologist's reading. Radiologist Impression: FINDINGS: PA and lateral views of the chest are submitted. A left-sided port is unchanged in position. There is a tiny opacity at the right lung base which could represent a small focus of pneumonia. There is linear scarring in the left midlung zone. There is no pleural effusion, pneumothorax, or pulmonary vascular congestion. The heart is normal in size. There is a lobulated contour of the right paratracheal and right hilar regions, compatible with lymphadenopathy.. There is degenerative disc disease of the spine. XR/XR chest 2V IMPRESSION: 1. Tiny opacity at the right lung base which could represent early pneumonia. Follow-up is recommended. 2. Right paratracheal and right hilar lymphadenopathy as seen on chest CT. Electronically signed by: Kingsley Monroy MD 10/14/2024 11:45 AM [facility] Discharge Plan Discharge Clinical Impression: Influenza A Patient Disposition: Home, Self-Care Instructions: Influenza (ED) Additional Instructions: Your blood work is reassuring. Your chest x-ray shows questionable pneumonia but because you are immuno compromise we are going to treat it as pneumonia You also tested positive the flu which is more likely the cause of your symptoms today Take Tamiflu twice daily for 5 days Hydrate well Call your oncologist tomorrow morning to let them know we diagnosed to with the flu in you are taking antibiotics for pneumonia Return for new or worsening symptoms Prescriptions: New azithromycin 250 mg tablet See Rx Instructions .ROUTE .COMPLEX Qty: 6 0RF Rx Instructions: For 250 mg dose pack: take 500 mg today (day 1), then 250 mg for 4 days (days 2-5) cefuroxime axetil 500 mg tablet 500 mg PO Q12H Qty: 14 0RF oseltamivir [Tamiflu] 75 mg capsule 75 mg PO Q12H 5 Days Qty: 10 0RF No Action betamethasone dipropionate 0.05 % cream 1 appl topical BID albuterol sulfate [Ventolin HFA] 90 mcg/actuation HFA aerosol inhaler 2 puff inhalation Q4H PRN (Reason: Wheezing) oxycodone 5 mg tablet 5 mg PO Q4H PRN (Reason: pain) cholecalciferol (vitamin D3) [Vitamin D3] 25 mcg (1,000 unit) capsule 25 mcg PO DAILY erlotinib 150 mg tablet 150 mg PO DAILY fluticasone propion-salmeterol [Advair HFA] 230-21 mcg/actuation HFA aerosol inhaler 2 puff inhalation BID acetaminophen 325 mg Tablet 325 mg PO QID PRN (Reason: Pain (Scale Score 1-3)) nicotine 14 mg/24 hr Patch 24 Hour 14 mg transdermal DAILY Qty: 3 0RF dextromethorphan-guaifenesin 10-100 mg/5 mL Syrup 10 ml PO QID PRN (Reason: cough) Qty: 237 0RF Eliquis 5 mg Tablet 10 mg PO BID Qty: 144 0RF Rx Instructions: Take Eliquis 10mg (5 mg 2 tablets twice daily) every 12 hours for 6 more days then take Eliquis 5 mg 1 tablet twice daily prednisone 10 mg tablet 10 mg PO DAILY Qty: 5 0RF Interventions: ED Discharge Assessment Last Done: 10/14/24 17:52 Discharge Date/Time: 10/14/24 17:58 Print Language: Romansh
--- NOTE | 2024-10-14 11:06 | ECG_ITS ---
Test Reason : SOB Blood Pressure : */* mmHG Vent. Rate : 101 BPM Atrial Rate : 101 BPM P-R Int : 116 ms QRS Dur : 88 ms QT Int : 344 ms P-R-T Axes : 41 33 15 degrees QTcB Int : 446 ms Sinus tachycardia Otherwise normal ECG When compared with ECG of 18-Jul-2024 10:33, No significant change was found Referred By: Reid Montaño Electronically Signed By: KIYA CABELLO MD
[2024-10-14 16:25] LABS: MANUAL DIFF FLAG NO
[2024-10-14 16:27] LABS: Basophils Percent Auto 0.2 % (0-2); Eosinophils Percent Auto 0.4 % (0-4); Hematocrit 42.2 % (37.0-47.0); Hemoglobin 13.3 g/dl (12.0-16.0); Imm Gran Abs Auto 0.04 X10*3/uL (0.00-0.03); Imm Gran Pct Auto 0.4 % (0.0-0.4); Lymphocytes Absolute Auto 2.8 X10*3/uL (1.2-4.9); Lymphocytes Percent Auto 26.8 % (20-40); Mean Corpuscular HGB Conc 31.5 g/dl (31.0-35.0); Mean Corpuscular Hemoglobin 26.3 pg (27.0-33.0); Mean Corpuscular Volume 83.4 fL (80.0-98.0); Mean Platelet Volume 8.5 fL (9.4-12.3); Monocytes Absolute Auto 0.7 X10*3/uL (0.1-1.2); Monocytes Percent Auto 6.2 % (2-11); Neutrophils Absolute Auto 6.9 x10*3/uL (2.0-8.3); Platelet Count 455 X10*3/uL (160-400); Red Blood Count 5.06 X10*6/uL (4.20-5.50); White Blood Count 10.4 X10*3/uL (4.8-10.8)
--- OUTSIDE RECORDS SUMMARY | 2024-10-14 16:36 | XMS_ITS | Clinical Summary ---
Author Organization [facility] ity Address [address] [place] [address] Care Team Providers Care Dcs Engineer Name Role Phone Unavailable Primary Care Provider Unavailabl e Social History Tobacco Use Types Packs/Day Years Used Date Smoking Tobacco: Never Assessed Comments Unknown Sex and Gender Information Value Date Recorded Sex Assigned at Not on file Legal Sex Female 10:52 PM EST Gender Identity Not on file Sexual Orientation Not on file Plan of Treatment Health Maintenance Due Date Last Done Comments Gonorrhea/Chlamydia Screening 2002 HPV Vaccines (1 - 3-dose series) 2017 DTaP,Tdap,and Td Vaccines (1 - Tdap) 2021 Hepatitis B Vaccines (1 of 3 - 19+ 3-dose series) 2021 Annual Well Child Visit (3-2 1 years old) 08/07/2022 Depression Screening 08/07/2022 HIV Screening 08/07/2022 Hepatitis C Screening 08/07/2022 Social Influencers of Health Screening 08/07/2022 Cervical Cancer Screening: P ap Smear 2023 COVID-19 Vaccine ( - 2023-2 5 season) 2024 Influenza Vaccine (#1) 2024 HIB Vaccines Aged Out No longer eligi ble based on patient's age to complete this topic Hepatitis A Vaccines Aged Out No long er eligible based on patient's age to complete this topic IPV Vaccines Aged Out No longer eligi ble based on patient's age to complete this topic MMR Vaccines Aged Out No longer eligi ble based on patient's age to complete this topic Meningococcal ACWY Vaccine Aged Out N o longer eligible based on patient's age to complete this topic Pneumococcal Vaccine: Pediat rics (0 to 5 Years) and At-Risk Patients (6 to 64 Years) Aged Out No longer eligible b ased on patient's age to complete this topic RSV Immunization Patients Un janiya 20 months Aged Out No longer eligible b ased on patient's age to complete this topic Varicella Vaccines Aged Out No longer eligible based on patient's age to complete this topic
[2024-10-14 16:41] LABS: INTERNATIONAL NORM RATIO 1.1 (0.9-1.1); Prothrombin Time 13.3 SEC (10.9-12.4)
[2024-10-14 16:42] LABS: Alanine Aminotransferase 23 U/L (0-31); Alkaline Phosphatase 69 U/L (39-117); Anion Gap 14 (12-20); Aspartate Amino Transferase 31 U/L (5-31); Bilirubin Total 0.2 mg/dL (0.0-1.0); Blood Urea Nitrogen 9 mg/dL (9-16); Calcium 9.4 mg/dL (8.4-10.2); Carbon Dioxide 26 mmol/L (22-29); Chloride 106 mmol/L (96-108); Creatinine Clr Calc Pharmacy 151.6; Estimated Glomerular Filt Rate > 60; Glucose Random 85 mg/dL (60-115); Lipase 9 U/L (8-78); Potassium 3.9 mmol/L (3.3-5.1); Sodium 142 mmol/L (135-145); Total Protein 8.8 g/dL (6.5-8.0)
[2024-10-14 16:49] LABS: Troponin-I High Sensitivity 16.2 ng/L (<3.5-17.0)
[2024-10-14 17:06] LABS: Influenza A PCR POSITIVE (Negative); Influenza B PCR NEGATIVE (Negative); Resp Syncy Virus RNA Qual PCR NEGATIVE (Negative); SARS COV2 PCR INHOUSE NEGATIVE (Negative)
[2024-10-14 17:46] VITALS: BP 151/96; PULSE 88; RESP 18; TEMP 37.2; O2SAT 97
[2024-10-14 17:52] VITALS: BP 151/96; PULSE 88; RESP 18; TEMP 37.2; O2SAT 97
== END 2024-10-14 17:58 | disposition home or self-care (01) ==
PROVIDERS: Physician Assistant; Emergency Provider Emergency Medicine; PCP Internal Medicine
DX: J10.1 Influenza due to other identified influenza virus with other respiratory manifestations (principal); R07.9 Chest pain, unspecified; R06.02 Shortness of breath; R50.9 Fever, unspecified; I26.99 Other pulmonary embolism without acute cor pulmonale; Z79.01 Long term (current) use of anticoagulants
CPT/HCPCS: 0241U; 71046; 80053; 83690; 83735; 84484; 85025; 85610; 93005; 99283

== ENCOUNTER → 2024-10-14 11:06 | Outpatient (BNV) | payer OTHER, SELFPAY | PROVIDERS: Emergency Provider Emergency Medicine; PCP Internal Medicine; Visit Provider Internal Medicine Cardiovascular Disease | DX: R00.0 Tachycardia, unspecified (principal) | CPT/HCPCS: 93010 ==

== ENCOUNTER → 2024-10-14 11:06 | Outpatient (BNV) | payer OTHER, SELFPAY | PROVIDERS: Visit Provider Radiology Diagnostic Radiology | DX: J18.9 Pneumonia, unspecified organism (principal) | CPT/HCPCS: 71046 ==

== ENCOUNTER 2024-11-18 08:05 | Emergency (ER) | payer OTHER, SELFPAY ==
[2024-11-18] VITALS (12 sets, daily range): BP systolic 107–140; BP diastolic 64–83; PULSE 98–114; RESP 14–24; TEMP 36.1–36.9; O2SAT 93–99; BMI 56.8
--- NOTE | 2024-11-18 | ECG_ITS ---
Test Reason : tachy Blood Pressure : */* mmHG Vent. Rate : 110 BPM Atrial Rate : 110 BPM P-R Int : 114 ms QRS Dur : 88 ms QT Int : 340 ms P-R-T Axes : 42 26 -7 degrees QTcB Int : 460 ms Sinus tachycardia Otherwise normal ECG When compared with ECG of 14-Oct-2024 15:51, Nonspecific T wave abnormality, worse in Inferior leads Referred By: Generic ED Physician Electronically Signed By: Carlos Alberto Roldan
--- NOTE | ~2024-11-18 | XR_ITS ---
EXAMINATION: XR CHEST 2 VIEWS HISTORY: sob/cough COMPARISON: Comparison is made with the prior examination dated 10/14/2024. FINDINGS: PA and lateral views of the chest are submitted. A left-sided port is unchanged in position. The lungs are expanded and clear. There is no pleural effusion, pneumothorax, or pulmonary vascular congestion. Again seen is lobulated soft tissue density in the right paratracheal and right hilar regions, consistent with lymphadenopathy. The heart is normal in size. The bones are intact. XR/XR chest 2V IMPRESSION: Right paratracheal and right hilar lymphadenopathy. The lungs are clear. Electronically signed by: Kingsley Monroy MD 11/18/2024 09:22 AM EDT
--- NOTE | ~2024-11-18 | CT_ITS ---
EXAMINATION: CT ANGIOGRAM CHEST CLINICAL INFORMATION: Worsening shortness of breath. COMPARISON: July 18, 2024 demonstrated the pulmonary embolism to the subsegmental pulmonary branches left lower lobe. TECHNIQUE: Multiple axial images were obtained through the chest after the administration of 65 mL of Omnipaque 350 intravenous contrast. Extensive vascular post-processing including two-dimensional and three-dimensional reformatted images were created and reviewed on an independent workstation. SmartPrep technique. This CT examination was performed using dose optimization techniques as appropriate, variously including the following: *Automated exposure control *Adjustment of mA and/or kV according to patient size (this includes techniques or standardized protocols for targeted exams where dose is matched to indication/reason for exam; i.e. extremities or head) *Use of iterative reconstruction technique. DLP: 443 mGy centimeter. FINDINGS: Limited by patient's motion artifact Inadequate smart prepped technique. There is no gross intraluminal filling defects within the main pulmonary artery or its main branches. No aneurysm or dissection, thoracic aorta. Mediastinal and perihilar lymphadenopathy, larger and causing extrinsic compression upon the airways and the pulmonary arteries. Lymphadenopathy retrocrural/retroperitoneal. There is a pulmonary mosaic pattern bilaterally. No pericardial effusion. No pneumothorax. No pleural effusion. No acute fracture or listhesis in the axial skeleton. No lytic or blastic lesions. Central venous line and in in the right atrium/SVC junction.. CT/CT angio chest PE protocol IMPRESSION: No acute central pulmonary artery emboli. No aneurysm or dissection, thoracic aorta. Extensive mediastinal perihilar and retrocrural lymphadenopathy, worsened since prior examination likely causing extrinsic compression upon the airways and pulmonary artery branches. Pulmonary mosaic pattern. Fleischner guidelines were followed. Electronically signed by: Trevor Hernandez MD 11/18/2024 11:08 AM EDT
--- NOTE | 2024-11-18 08:40 | PC.NURSE ---
biba from home c/o URI sx x 2 weeks. pt c/o increased increased sob/productive cough/sore throat/vomiting/dizziness. pt also reporting chest pain induced w/ cough. hx asthma/DAISHA - using inhalers at home w/ minimal to no relief. pt denies recent fever/chills. hx kidney CA - currently not having chemotherapy completed d/t wound on abdomen x 1 month - compliant w/ wound care visits. hx PE - compliant w/ eloquis. upon ED arrival - a&ox4. vss and up to date aside from being sinus tachycardic on the monitor - pt currently denies chest pain/palpitations. pt currently on RA w/o difficulty - no signs of respiratory distress. no sob/wob noted. respirations even/unlabored. hx asthma - wheezing noted throughout all lung varma. 20gIV placed in the right AC - labs obtained/sent to lab. pt currently to xray. results pending. plan of care ongoing. call munguia placed within reach.
[2024-11-18 08:41] LABS: MANUAL DIFF FLAG NO
[2024-11-18 08:43] LABS: IDNOW Serial# 58CA691E; Strep A Nucleic Acid Negative (Negative)
[2024-11-18 08:46] LABS: Basophils Absolute Auto 0.1 X10*3/uL (0.0-0.2); Basophils Percent Auto 0.4 % (0-2); Eosinophils Absolute Auto 0.1 X10*3/uL (0.0-0.4); Eosinophils Percent Auto 0.7 % (0-4); Hematocrit 38.6 % (37.0-47.0); Hemoglobin 12.1 g/dl (12.0-16.0); Imm Gran Abs Auto 0.12 X10*3/uL (0.00-0.03); Imm Gran Pct Auto 0.9 % (0.0-0.4); Lymphocytes Absolute Auto 2.3 X10*3/uL (1.2-4.9); Lymphocytes Percent Auto 17.1 % (20-40); Mean Corpuscular HGB Conc 31.3 g/dl (31.0-35.0); Mean Corpuscular Hemoglobin 25.5 pg (27.0-33.0); Mean Corpuscular Volume 81.3 fL (80.0-98.0); Mean Platelet Volume 8.3 fL (9.4-12.3); Monocytes Percent Auto 7.1 % (2-11); Neutrophils Absolute Auto 9.9 x10*3/uL (2.0-8.3); Neutrophils Percent Auto 73.8 % (45-73); Platelet Count 516 X10*3/uL (160-400); Red Blood Count 4.75 X10*6/uL (4.20-5.50); Red Cell Distribution Width 16.7 % (11.0-16.0); White Blood Count 13.5 X10*3/uL (4.8-10.8)
[2024-11-18 08:57] LABS: Alanine Aminotransferase 20 U/L (0-31); Albumin Level 3.9 g/dL (3.5-5.0); Alkaline Phosphatase 95 U/L (39-117); Anion Gap 13 (12-20); Aspartate Amino Transferase 22 U/L (5-31); Bilirubin Total 0.3 mg/dL (0.0-1.0); Blood Urea Nitrogen 17 mg/dL (9-16); Calcium 9.6 mg/dL (8.4-10.2); Carbon Dioxide 23 mmol/L (22-29); Chloride 107 mmol/L (96-108); Creatinine Clr Calc Pharmacy 125.4; Estimated Glomerular Filt Rate > 60; Glucose Random 105 mg/dL (60-115); Potassium 4.2 mmol/L (3.3-5.1); Sodium 139 mmol/L (135-145)
[2024-11-18] MEDS: Albuterol Sulfate 5 MG, Albuterol/Iprat 2.5/0.5MG 3 ML 3 ML INHALE (09:00)
--- NOTE | 2024-11-18 09:11 | ED_ITS ---
HPI - General Adult General Chief complaint: Upper Respiratory Symptoms Stated complaint: FLU LIKE SYMPTOMS FOR 2 WEEKS Time Seen by Provider: 11/18/24 09:08 Source: patient and EMS Mode of arrival: EMS Limitations: no limitations History of Present Illness ED Provider: Alanna Hogue PA-C HPI narrative: Patient is a 24 year old assigned female at with a history of hereditary leiomyomatosis, renal cell carcinoma with nephrectomy in 2022 - receiving chemotherapy biweekly with her last dose over a month ago because of an abdominal wound, HTN, asthma, recent PE (07/2024) for which she is on Eliquis, and recent Influenza in 10/29, presenting to the emergency department today with chest pain, cough, and shortness of breath. Patient states that over the last few weeks she has had increased shortness of breath and cough. Patient states that she was following with wound care for her abdominal wound but missed her most recent appointment. Patient denies any dizziness, lightheadedness, abdominal pain, nausea, vomiting, fever, chills, blurry vision, double vision, loss of vision, back pain, night sweats, pain with urination, increased urinary frequency, increased urinary urgency, blood in her urine or stool, syncope or a near syncopal episode, recent trauma or falls, bowel incontinence, bladder incontinence, or any other complaints at this time. Onset (ago): week(s) Relieving factors: none Exacerbating factors: none Associated symptoms: chest pain, cough and shortness of breath Treatments prior to arrival: none Related Data Home Medications ?Medication ?Instructions ?Recorded ?Confirmed acetaminophen 325 mg tablet 325 mg PO QID PRN Pain (Scale 07/18/24 07/18/24 Score 1-3) albuterol sulfate 90 mcg/actuation 2 puff inhalation Q4H PRN Wheezing 07/18/24 07/18/24 aerosol inhaler (Ventolin HFA) betamethasone dipropionate 0.05 % 1 appl topical BID 07/18/24 07/18/24 topical cream cholecalciferol (vitamin D3) 25 25 mcg PO DAILY 07/18/24 07/18/24 mcg (1,000 unit) capsule (Vitamin D3) erlotinib 150 mg tablet 150 mg PO DAILY 07/18/24 07/18/24 fluticasone propionate 230 2 puff inhalation BID 07/18/24 07/18/24 mcg-salmeterol 21 mcg/actuation HFA inhaler (Advair HFA) oxycodone 5 mg tablet 5 mg PO Q4H PRN pain 07/18/24 07/18/24 Previous Rx's ?Medication ?Instructions ?Recorded apixaban 5 mg tablet (Eliquis) 10 mg (2 x 5 mg) PO BID #144 tabs 07/22/24 dextromethorphan-guaifenesin 10 10 ml PO QID PRN cough #237 mL 07/22/24 mg-100 mg/5 mL oral syrup nicotine 14 mg/24 hr daily 14 mg transdermal DAILY #3 ea 07/22/24 transdermal patch prednisone 10 mg tablet 10 mg PO DAILY #5 tabs 07/22/24 azithromycin 250 mg tablet See Rx Instructions PO .COMPLEX #6 10/14/24 tabs cefuroxime axetil 500 mg tablet 500 mg PO Q12H #14 tabs 10/14/24 oseltamivir 75 mg capsule (Tamiflu) 75 mg PO Q12H 5 days #10 caps 10/14/24 Allergies Allergy/AdvReac Type Severity Reaction Status Date / Time nystatin Allergy Hives Verified 11/18/24 08:13 amoxicillin AdvReac Vomiting Verified 11/18/24 08:13 Review of Systems 2 Constitutional: Constitutional: Reports no additional constitutional complaints, Denies chills, Denies fever(s) and Denies night sweats Eyes: Eyes: Reports no additional eye complaints, Denies blurry vision, Denies change in vision, Denies diplopia, Denies eye discharge, Denies loss of vision and Denies eye pain ENT: Denies dizziness Cardiovascular: Cardiovascular: Reports no additional cardiovascular complaints, Reports chest pain, Denies lightheadedness, Denies Loss of Consciousness and Reports dyspnea Respiratory: Respiratory: Reports no additional respiratory complaints, Reports cough and Reports dyspnea Gastrointestinal: Gastrointestinal: Reports no additional gastrointestinal complaints, Denies abdominal pain, Denies melena, Denies hematochezia, Denies change in bowel habits and Denies change in stool character Comments: non healing abdominal wound Genitourinary: Genitourinary: Denies hematuria, Denies urinary frequency, Denies dysuria, Denies urinary incontinence, Denies urinary hesitancy and Denies urinary urgency Musculoskeletal: Musculoskeletal: Reports no additional musculoskeletal complaints, Denies numbness and Denies tingling Neurologic: Denies dizziness, Denies loss of vision, Denies numbness and Denies tingling Psychiatric: Psychiatric: Reports no additional psychiatric complaints Endocrine: Endocrine: Reports no additional endocrine complaints Hematologic/Lymphatic: Hematologic/Lymphatic: Reports no additional hematologic/lymphatic complaints Allergic/Immunologic: Allergic/Immunologic: Reports no additional allergic/immunologic complaints PMFSH Past Medical History Attestation statement: The following information was validated with the patient. Source: old records reviewed and nursing notes reviewed Medical History HTN (hypertension) Depression Moderate persistent asthma Status post nephrectomy 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[facility]) Social History Social History Housing: Apartment Patient Tobacco Use Status: Current everyday Tobacco user Tobacco use type: Cigarette Smoked in Last 30 Days: No Use of substances other than those prescribed or required for medical reasons: Yes Substance Use Type: Marijuana Advance Directives: Yes Advance Directives on File: Yes Advance Directives Date on File: 07/18/24 Do you have a plan to hurt others: No Plan Patient : No service: No Physical Exam ED Vital Signs: Vital Signs - 24 hr 11/18/24 08:16 11/18/24 08:38 11/18/24 09:01 Temperature 98.4 F Pulse Rate 114 H 107 H Respiratory Rate 22 H 22 H Blood Pressure 134/69 Pulse Oximetry 97 99 Oxygen Delivery Method Room Air Room Air 11/18/24 10:57 11/18/24 11:54 Temperature 97.0 F 97.8 F Pulse Rate 103 H 100 Respiratory Rate 18 18 Blood Pressure 110/64 115/68 Pulse Oximetry 97 96 Oxygen Delivery Method Room Air Room Air BMI result Body Mass Index 56.8 Const General: cooperative, no acute distress, alert and awake Nutritional Appearance: well nourished and obese Orientation/consciousness: patient oriented x3 Limitations: no limitations HENMT Head: Yes normal to inspection and Yes atraumatic Ears: hearing grossly normal bilaterally and external ears normal General nose exam: Normal external nose present, no nasal discharge noted and no epistaxis Face and sinus: Yes normal facial exam, No abrasion and No laceration Mouth: Normal oral and palatal mucosa present, no drooling and no muffled voice Eyes General: appearance normal, both eyes and all related structures Periorbital: periorbital findings normal Eyelids: Yes eyelids normal Conjunctivae: conjunctivae normal Pupils: Equal, round and reactive pupils present EOM: EOMs intact bilaterally Neck Neck: Yes normal visual inspection, Yes full ROM and Yes no lymphadenopathy Chest Chest palpation & inspection: normal inspection of the chest Resp Effort & Inspection: normal respiratory effort and able to speak in complete sentences Auscultation: wheezes scattered wheezes and throughout Cardio Rate: tachycardic Rhythm: regular rhythm GI Other: Palpation (GI): Soft to palpation, not firm, nontender and no guarding Neuro General: patient oriented x3, moves all extremities and CN's II-XI intact bilaterally Cranial nerves: Yes Equal, round and reactive pupils present Cognition (Neuro): normal cognition Extrem General: Yes normal to inspection, Yes full ROM and Yes capillary refill normal Psych Appearance: grossly normal Mental Status: mental status grossly normal Affect: normal affect Attitude: cooperative Thought process: Normal thought process present Thought content: Normal thought content present Insight: Good insight present (Psych) Course Reevaluation(s) Reevaluation #1: Patient requested to be admitted to [facility] rather than transferred. I spoke with the hospitalist, Dr. Mitchell, who stated the patient should be transferred to [facility] given her CT findings of worsening lypmhadenopathy causing compression on the pulmonary vasculature. Time: 11:41 Reevaluation #2: Spoke to the [facility] [place] Heme/Onc + Hospitalist teams who agreed to admission of the patient. Dr. Vogt accepting. Time: 12:10 Medications Administered Discontinued Medications Generic Name Dose Route Start Last Admin Trade Name Edgardo PRN Reason Stop Dose Admin Ceftriaxone Sodium 1 gm 11/18/24 09:43 11/18/24 10:49 Ceftriaxone Sodium 1 Gm Vial IVPUSH 11/18/24 09:44 1 gm ONCE ONE Administration Albuterol Sulfate 5 mg/ 0 mg 11/18/24 08:54 11/18/24 09:00 Albuterol/Ipratropium 3 ml INHALE 11/18/24 08:55 1 each ONCE ONE Administration Azithromycin 500 mg/ Sodium 250 mls @ 125 mls/hr 11/18/24 09:43 11/18/24 10:49 Chloride IV 11/18/24 11:42 125 mls/hr ONCE ONE Administration Iohexol 100 ml 11/18/24 10:38 11/18/24 10:39 Iohexol 350 Mg/Ml 100 Ml Infus..Btl IV 11/18/24 10:39 75 ml ONCE ONE Administration Medical Decision Making Medical Decision Making [facility] Narrative: Patient is a 24 year old assigned female at with a history of hereditary leiomyomatosis, renal cell carcinoma with nephrectomy in 2022 - receiving chemotherapy biweekly with her last dose over a month ago because of an abdominal wound, HTN, asthma, recent PE (07/2024) for which she is on Eliquis, and recent Influenza in 10/29, presenting to the emergency department today with chest pain, cough, and shortness of breath. Patient's physical exam was as noted in the physical exam portion of this note. Patient's blood work showed a mildly elevated WBC count but was otherwise unremarkable. Patient's EKG was unremarkable. Patient's chest x-ray showed no acute process. Patient's chest CTA showed extensive mediastinal perihilar and retrocrural lymphadenopathy - worsened since prior examination likely causing extrinsic compression upon the airways and pulmonary artery branches. Patient's clinical presentation is most consistent with superimposed asthma exacerbation in the setting of worsening lymphadenopathy of the mediastinum / perihilar region. I spoke with the hospitalist team who declined admission due to the CTA findings and recommended transfer to [facility] where she has her cancer treatment team. I spoke to the [facility] transfer line and the patient was accepted, per the course portion of this note. I explained my physical exam findings as well as all test results to the patient. I answered all questions asked by the patient. Patient received a breathing treatment, IV azithromycin, and IV ceftriaxone which, upon re-evaluation, she stated it helped her symptoms some. Patient verbalized agreement and understanding with this treatment plan and transfer to [facility] [place]. Differential Diagnosis Differential Diagnoses: The differential diagnosis associated with the presentation includes SOB PE Asthma exacerbation Difficulty breathing Worsening lymphadenopathy Admission/Observation Consideration of admission/observation: Escalation of care including admission/observation considered Patient's admission declined here at [facility] - accepted at [facility] [place]. Consult Healthcare Provider Management of the patient was discussed with: Hospitalist (declined admission as noted in the MDM Rationale and course portions of this note. ) and Postal Mail Carrier (spoke with [facility] [place] hematology/oncology and hospitalist teams as noted in the MDM Rationale + Course portions of this note. ) Lab Data [facility] Lab Attestation statement: I reviewed the patient's lab results. My interpretation of these results are in the MDM Rationale portion of this note. 11/18/24 08:32 11/18/24 08:32 Labs: Lab Results 11/18/24 11/18/24 11/18/24 Range/Units 08:16 08:32 08:33 WBC 13.5 H (4.8-10.8) X10*3/uL RBC 4.75 (4.20-5.50) X10*6/uL Hgb 12.1 (12.0-16.0) g/dl Hct 38.6 (37.0-47.0) % MCV 81.3 (80.0-98.0) fL MCH 25.5 L (27.0-33.0) pg MCHC 31.3 (31.0-35.0) g/dl RDW 16.7 H (11.0-16.0) % Plt Count 516 H (160-400) X10*3/uL MPV 8.3 L (9.4-12.3) fL Immature Gran % (Auto) 0.9 H (0.0-0.4) % Neut % (Auto) 73.8 H (45-73) % Lymph % (Auto) 17.1 L (20-40) % Camas % (Auto) 7.1 (2-11) % Eos % (Auto) 0.7 (0-4) % Baso % (Auto) 0.4 (0-2) % Lymph # (Auto) 2.3 (1.2-4.9) X10*3/uL Camas # (Auto) 1.0 (0.1-1.2) X10*3/uL Eos # (Auto) 0.1 (0.0-0.4) X10*3/uL Baso # (Auto) 0.1 (0.0-0.2) X10*3/uL Abs Immat Gran (auto) 0.12 H (0.00-0.03) X10*3/uL Absolute Neuts (auto) 9.9 H (2.0-8.3) x10*3/uL Absolute Nucleated RBC 0.000 (0.0-0.012) X10*3/uL Nucleated RBC % (auto) 0.0 (0.0-0.2) /100WBC Hold Blue Top SEE NOTE Sodium 139 (135-145) mmol/L Potassium 4.2 (3.3-5.1) mmol/L Chloride 107 (96-108) mmol/L Carbon Dioxide 23 (22-29) mmol/L Anion Gap 13 (12-20) BUN 17 H (9-16) mg/dL Creatinine 0.89 (0.5-1.4) mg/dL Estim Creat Clear Calc 125.4 Estimated GFR > 60 Random Glucose 105 (60-115) mg/dL Lactic Acid (0.5-2.0) mmol/L Calcium 9.6 (8.4-10.2) mg/dL Magnesium 1.9 (1.6-2.6) mg/dL Total Bilirubin 0.3 (0.0-1.0) mg/dL Direct Bilirubin 0.2 (0.0-0.5) mg/dL AST 22 (5-31) U/L ALT 20 (0-31) U/L Alkaline Phosphatase 95 (39-117) U/L Total Protein 9.0 H (6.5-8.0) g/dL Albumin 3.9 (3.5-5.0) g/dL Beta HCG, Quant < 2 mIU/mL Influenza Type A (PCR) NEGATIVE (Negative) Influenza Type B (PCR) NEGATIVE (Negative) RSV RNA Qual (PCR) NEGATIVE (Negative) SARS-CoV-2 RNA (RT-PCR) NEGATIVE (Negative) S. pyogenes GrpA BENEDICT Negative (Negative) 11/18/24 Range/Units 10:43 WBC (4.8-10.8) X10*3/uL RBC (4.20-5.50) X10*6/uL Hgb (12.0-16.0) g/dl Hct (37.0-47.0) % MCV (80.0-98.0) fL MCH (27.0-33.0) pg MCHC (31.0-35.0) g/dl RDW (11.0-16.0) % Plt Count (160-400) X10*3/uL MPV (9.4-12.3) fL Immature Gran % (Auto) (0.0-0.4) % Neut % (Auto) (45-73) % Lymph % (Auto) (20-40) % Camas % (Auto) (2-11) % Eos % (Auto) (0-4) % Baso % (Auto) (0-2) % Lymph # (Auto) (1.2-4.9) X10*3/uL Camas # (Auto) (0.1-1.2) X10*3/uL Eos # (Auto) (0.0-0.4) X10*3/uL Baso # (Auto) (0.0-0.2) X10*3/uL Abs Immat Gran (auto) (0.00-0.03) X10*3/uL Absolute Neuts (auto) (2.0-8.3) x10*3/uL Absolute Nucleated RBC (0.0-0.012) X10*3/uL Nucleated RBC % (auto) (0.0-0.2) /100WBC Hold Blue Top Sodium (135-145) mmol/L Potassium (3.3-5.1) mmol/L Chloride (96-108) mmol/L Carbon Dioxide (22-29) mmol/L Anion Gap (12-20) BUN (9-16) mg/dL Creatinine (0.5-1.4) mg/dL Estim Creat Clear Calc Estimated GFR Random Glucose (60-115) mg/dL Lactic Acid 1.4 (0.5-2.0) mmol/L Calcium (8.4-10.2) mg/dL Magnesium (1.6-2.6) mg/dL Total Bilirubin (0.0-1.0) mg/dL Direct Bilirubin (0.0-0.5) mg/dL AST (5-31) U/L ALT (0-31) U/L Alkaline Phosphatase (39-117) U/L Total Protein (6.5-8.0) g/dL Albumin (3.5-5.0) g/dL Beta HCG, Quant mIU/mL Influenza Type A (PCR) (Negative) Influenza Type B (PCR) (Negative) RSV RNA Qual (PCR) (Negative) SARS-CoV-2 RNA (RT-PCR) (Negative) S. pyogenes GrpA BENEDICT (Negative) Independent Interpretation I performed an independent interpretation of an: EKG, Plain X-Ray and CT Scan Interpretation: My interpretation is in agreement with the radiologist's impression of these imaging studies. L EXAMINATION: XR CHEST 2 VIEWS HISTORY: sob/cough COMPARISON: Comparison is made with the prior examination dated 10/14/2024. FINDINGS: PA and lateral views of the chest are submitted. A left-sided port is unchanged in position. The lungs are expanded and clear. There is no pleural effusion, pneumothorax, or pulmonary vascular congestion. Again seen is lobulated soft tissue density in the right paratracheal and right hilar regions, consistent with lymphadenopathy. The heart is normal in size. The bones are intact. XR/XR chest 2V IMPRESSION: Right paratracheal and right hilar lymphadenopathy. The lungs are clear. Electronically signed by: Kingsley Monroy MD 11/18/2024 09:22 AM EDT RP Dictated By: Kingsley Monroy MD Signed By: Electronically signed by Kingsley Monroy MD 11/18/24 0922 Report Number: [id number]: Total DLP = 443.00 mGy-cm EXAMINATION: CT ANGIOGRAM CHEST CLINICAL INFORMATION: Worsening shortness of breath. COMPARISON: July 18, 2024 demonstrated the pulmonary embolism to the subsegmental pulmonary branches left lower lobe. TECHNIQUE: Multiple axial images were obtained through the chest after the administration of 65 mL of Omnipaque 350 intravenous contrast. Extensive vascular post-processing including two-dimensional and three- dimensional reformatted images were created and reviewed on an independent workstation. SmartPrep technique. This CT examination was performed using dose optimization techniques as appropriate, variously including the following: *Automated exposure control *Adjustment of mA and/or kV according to patient size (this includes techniques or standardized protocols for targeted exams where dose is matched to indication/reason for exam; i.e. extremities or head) *Use of iterative reconstruction technique. DLP: 443 mGy centimeter. FINDINGS: Limited by patient's motion artifact Inadequate smart prepped technique. There is no gross intraluminal filling defects within the main pulmonary artery or its main branches. No aneurysm or dissection, thoracic aorta. Mediastinal and perihilar lymphadenopathy, larger and causing extrinsic compression upon the airways and the pulmonary arteries. Lymphadenopathy retrocrural/retroperitoneal. There is a pulmonary mosaic pattern bilaterally. No pericardial effusion. No pneumothorax. No pleural effusion. No acute fracture or listhesis in the axial skeleton. No lytic or blastic lesions. Central venous line and in in the right atrium/SVC junction.. CT/CT angio chest PE protocol IMPRESSION: No acute central pulmonary artery emboli. No aneurysm or dissection, thoracic aorta. Extensive mediastinal perihilar and retrocrural lymphadenopathy, worsened since prior examination likely causing extrinsic compression upon the airways and pulmonary artery branches. Pulmonary mosaic pattern. Fleischner guidelines were followed. Electronically signed by: Trevor Hernandez MD 11/18/2024 11:08 AM EDT Dictated By: Trevor Navarrete MD Signed By: Electronically signed by Trevor Cedillo MD 11/18/24 1108 I independently interpreted this EKG and am in agreement with the below findings: Vent. Rate: 110 BPM Atrial Rate: 110 BPM P-R Int: 114 ms QRS Dur: 88 ms QT Int: 340 ms P-R-T Axes: 42 26 -7 degrees QTcB Int: 460 ms Sinus tachycardia When compared with ECG of 14-Oct-2024 15:51, Nonspecific T wave abnormality, worse in Inferior leads DD/ [id number] Radiology Impression Discussion of test interpretation with radiology: I have reviewed the radiologist's reading. Independent Historian Clinical information obtained from an independent historian. History obtained from or confirmed by: EMS (EMS provided additional history and confirmed the history provided by the patient.) Critical Care Time Critical Care Time Critical Care Time: Yes Total Critical Care Time: 46 Attestation: I spent 46 minutes of Critical Care Time with this patient. This does not include time spent on separately reported billable procedures. Discharge Plan Discharge Clinical Impression: Shortness of breath, Lymphadenopathy, hilar, Lymphadenopathy, mediastinal, Asthma exacerbation Patient Disposition: [facility] Transfer Details: [facility], accepted by Dr. Vogt Prescriptions: No Action betamethasone dipropionate 0.05 % cream 1 appl topical BID albuterol sulfate [Ventolin HFA] 90 mcg/actuation HFA aerosol inhaler 2 puff inhalation Q4H PRN (Reason: Wheezing) oxycodone 5 mg tablet 5 mg PO Q4H PRN (Reason: pain) cholecalciferol (vitamin D3) [Vitamin D3] 25 mcg (1,000 unit) capsule 25 mcg PO DAILY erlotinib 150 mg tablet 150 mg PO DAILY fluticasone propion-salmeterol [Advair HFA] 230-21 mcg/actuation HFA aerosol inhaler 2 puff inhalation BID acetaminophen 325 mg Tablet 325 mg PO QID PRN (Reason: Pain (Scale Score 1-3)) nicotine 14 mg/24 hr Patch 24 Hour 14 mg transdermal DAILY Qty: 3 0RF dextromethorphan-guaifenesin 10-100 mg/5 mL Syrup 10 ml PO QID PRN (Reason: cough) Qty: 237 0RF Eliquis 5 mg Tablet 10 mg PO BID Qty: 144 0RF Rx Instructions: Take Eliquis 10mg (5 mg 2 tablets twice daily) every 12 hours for 6 more days then take Eliquis 5 mg 1 tablet twice daily prednisone 10 mg tablet 10 mg PO DAILY Qty: 5 0RF azithromycin 250 mg tablet See Rx Instructions .ROUTE .COMPLEX Qty: 6 0RF Rx Instructions: For 250 mg dose pack: take 500 mg today (day 1), then 250 mg for 4 days (days 2-5) cefuroxime axetil 500 mg tablet 500 mg PO Q12H Qty: 14 0RF oseltamivir [Tamiflu] 75 mg capsule 75 mg PO Q12H 5 Days Qty: 10 0RF Print Language: Ukrainian
[2024-11-18 09:15] LABS: Bilirubin Direct 0.2 mg/dL (0.0-0.5); Magnesium 1.9 mg/dL (1.6-2.6)
[2024-11-18 09:16] LABS: Influenza A PCR NEGATIVE (Negative); Influenza B PCR NEGATIVE (Negative); Resp Syncy Virus RNA Qual PCR NEGATIVE (Negative); SARS COV2 PCR INHOUSE NEGATIVE (Negative)
[2024-11-18 10:19] LABS: HCG Quantitative < 2 mIU/mL
--- NOTE | 2024-11-18 10:29 | PC.NURSE ---
wound culture obtained/sent to lab. wound to LL abdomen - xeroform/nonstick abd pad/tegaderm applied to affected area. pt to CT at this time.
[2024-11-18] MEDS: iohexoL 350 MG/ML 100 ML INFUS..BTL IV (10:39)
[2024-11-18] MEDS: Azithromycin 500 MG in 0.9 % Sodium Chloride 250 ML 125 MG IV (10:49)
[2024-11-18] MEDS: cefTRIAXone sodium 1 GM VIAL IVPUSH (10:49)
--- NOTE | 2024-11-18 10:50 | PC.NURSE ---
pt returned from CT at this time - cultures obtained/sent to lab. abx administered per provider order. pt remains on RA w/o difficulty. no sob/wob noted. respirations even/unlabored. plan of care ongoing. call munguia placed within reach.
[2024-11-18 11:06] LABS: Lactic Acid 1.4 mmol/L (0.5-2.0)
--- NOTE | 2024-11-18 12:02 | PHA.MEDREC ---
Pharmacy Consult ? Medication Reconciliation Pharmacy has completed the medication reconciliation. Spoke with patient and she stated she is taking a Metoprolol 50mg tab once a day but was not sure if it was a Succinate or Tartrate tablet. She stated she is filling it at [facility] [address] [facility] [place] and last took it 2 days ago. I called [facility] on [facility] and they confirmed they have history of them filling Metoprolol Succinate 50mg tabs once a day but stated that has not been filled or picked up since September 07 2023 for 90 days.
--- NOTE | 2024-11-18 13:48 | PHA.MEDREC ---
Addendum entered by Zan Rincon RPh 11/18/24 14:21: Med rec was reviewed by [facility]. Per Deondre, for advair HFA 500-50 mcg, pt is now using it 2 puffs daily (dose was change last month from 2 puffs bid). Original Note: Pharmacy Consult ? Medication Reconciliation Pharmacy has completed the medication reconciliation. Spoke with patient and she confirmed her medications. Patient confirmed she is is taking the Eliquis 5mg tab and confirmed it is twice a day. She confirmed her Zepbound injection once a week and confirmed she takes 5mg once every Tuesdays and she stated she took it this past Monday. She stated she was taking 2 cancer medications but does not remember the names of them and has not been compliant with taking them and she states she has not taken them since October 11. The patient states she was filling them at [facility]. I called and spoke with [facility] and they stated the patent was getting Lenvima 18mg caps taken 3 caps daily and Everolimus 5mg tabs taken once a day but states she has not gotten them since 09/24/2024 for 30 days. The patient confirmed she last took her medications yesterday.
--- NOTE | 2024-11-18 14:57 | PC.NURSE ---
pt notified/aware that she will be being transported to [facility]. ETA unknown as a bed assignment has not been confirmed. will give nurse to nurse report when bed becomes available. pt otherwise continues to rest in no apparent distress. no sob/wob noted. respirations even/unlabored. plan of care ongoing. call munguia placed within reach.
--- NOTE | 2024-11-18 17:03 | PC.NURSE ---
pt verbalizing increase in SOB. slight sob/wob noted. pt positioned upright to promote patent airway. wheezing noted throughout all lung varma. provider notified/aware. pt receiving 2nd breathing tx via RT at this time. effectiveness pending.
[2024-11-18] MEDS: Albuterol Sulfate 2.5 MG, Albuterol/Iprat 2.5/0.5MG 3 ML 3 ML INHALE (17:06)
[2024-11-18 17:53] LABS: Appearance Urine Cloudy; Color Urine Yellow; Glucose Urine UA Negative (Negative); Leukocyte Esterase Urine Trace (Negative); Nitrite Urine Negative (Negative); PH 6.5 (5.0-9.0); Specific Gravity - Urine >= 1.030 (1.005-1.025); UMIC TRIGGER UACC YES; Urine Blood Large (3+) (Negative); Urine Ketones Negative (Negative); Urine Protein 30 (1+) mg/dL (Neg-Trace)
[2024-11-18 18:09] LABS: Bacteria Urine 2+ (None Seen); Hyaline Casts Urine 0-2 /LPF (0-2); WBC Urine 0-5 /HPF (0-5)
[2024-11-18] MEDS: Acetaminophen 325 MG TABLET 975 MG PO (20:17)
--- NOTE | 2024-11-18 21:29 | PC.NURSE ---
t/w called [facility] transfer line for update on bed assignment, per [facility] rep Andreia there will not be a bed for pt tonight- pt is on list for 11/19/24. reviewed with LIZETH Montaño, okay to give pt food as pt has been NPO since arrival to dept. provided pt with meal, discussed moving pt from [facility] to ED1 with chargeback analyst, in order to provide pt with a quieter environment, with television. pt moved to ED1 report given to Mili Mcknight RN.
--- NOTE | 2024-11-18 21:40 | PC.NURSE ---
Patient moved from [facility] to ED 1. Plan for transfer to [facility] per Fannie Pizano LPN. Care ongoing by this RN.
[2024-11-18] MEDS: Apixaban 5 MG TABLET PO (22:10)
[2024-11-18] MEDS: oxyCODONE HCl Immed Release 5 MG TABLET PO (23:26)
[2024-11-18] MEDS: Albuterol Sulfate (0.083%) 2.5 MG/3 ML VIAL.NEB INHALE (23:35)
[2024-11-19] VITALS (9 sets, daily range): BP systolic 118–152; BP diastolic 76–94; PULSE 103–109; RESP 12–18; TEMP 36.5–37.2; O2SAT 96–99
--- NOTE | 2024-11-19 03:15 | PC.NURSE ---
pt was sleeping, completed pain assessment.
--- NOTE | 2024-11-19 05:54 | PC.NURSE ---
pt sleeping most of the night, no sign of distress, pt did request breathing treatment, respiratory notified.
[2024-11-19] MEDS: Cholecalciferol (Vitamin D3) 25 MCG TABLET PO (08:00)
[2024-11-19] MEDS: Apixaban 5 MG TABLET PO ×2 (08:00→20:46)
[2024-11-19] MEDS: Acetaminophen 325 MG TABLET PO ×2 (08:11→20:46)
--- NOTE | 2024-11-19 08:41 | PC.NURSE ---
Patient reporting mid back pain that started a few weeks ago , states she is concerned about the pain. MD aware stating that patient is being transferred to [facility] , work up for back pain can be continued at [facility]
[2024-11-19] MEDS: Albuterol Sulfate (0.083%) 2.5 MG/3 ML VIAL.NEB INHALE ×2 (11:03→20:45)
[2024-11-19] MEDS: Fluticasone/Vilanterol 200/25 BLST.W.DEV 1 PUFF INHALE (11:03)
[2024-11-19] MEDS: oxyCODONE HCl Immed Release 5 MG TABLET PO (16:05)
--- NOTE | 2024-11-19 17:38 | PC.NURSE ---
Multiple calls placed to [facility], they continue to state they are trying to find a bed for her. Patient medicated per nov for complaints of back pain with good effect. Patient ate well for lunch and dinner , parents updated on plan of care
--- NOTE | 2024-11-19 17:52 | PC.NURSE ---
Patients father calling multiple times stating patient is getting no care and has not not been fed in days . In to patients room to ask if she needs anything. Patient stating no she is fine and that the oxycodone did help with her pain. Patient aware that staff have called [facility] multiple times to request an update on bed assignment.
--- NOTE | 2024-11-19 18:00 | MHC.EDTECH ---
during 1800 rounds pt stated they were having axiety, pt wanted medication, rn Jacquelyn made aware, pt stated they do not need or want anything else.
[2024-11-19] MEDS: hydrOXYzine HCL 25 MG TABLET PO (18:11)
--- NOTE | 2024-11-19 18:13 | PC.NURSE ---
Patient requesting medication to help with her anxiety, provider aware, medicated per mar. Sitting up in bed using modeling ron and buildnig legos. offers no complaints at this time
--- NOTE | 2024-11-19 19:46 | MHC.EDTECH ---
Pt ate 1/2 of dinner and stated they did not want the rest, pt denied needing anything at this time
[2024-11-19] MEDS: guaiFENesin DM 100/10/5 ML 5 ML SYRUP 10 ML PO (20:45)
--- NOTE | 2024-11-19 20:50 | PC.NURSE ---
medicated per nov. calm, a+o, on phone sitting in bed on facetime with family. states needs are met. call munguia in reach
--- NOTE | 2024-11-19 21:51 | PC.NURSE ---
bilateral expiratory wheezing resolved s/p prn nebulizer. RT Fernando aware. pt remains calm sitting up in bed watching phone. states needs are met at this time. call munguia in reach
[2024-11-20 04:05] VITALS: PULSE 107; RESP 16; O2SAT 97
[2024-11-20] MEDS: Albuterol Sulfate (0.083%) 2.5 MG/3 ML VIAL.NEB INHALE (04:05)
--- NOTE | 2024-11-20 07:34 | MHC.EDTECH ---
Breakfast was served, and worm blanket was given as well.
[2024-11-20 07:50] VITALS: PULSE 108; RESP 18; O2SAT 98
[2024-11-20] MEDS: Fluticasone/Vilanterol 200/25 BLST.W.DEV 1 PUFF INHALE (07:50)
[2024-11-20 09:07] VITALS: BP 129/75; PULSE 95; RESP 16; TEMP 36.6; O2SAT 99
[2024-11-20] MEDS: oxyCODONE HCl Immed Release 5 MG TABLET PO (09:49)
[2024-11-20] MEDS: Apixaban 5 MG TABLET PO (10:14)
[2024-11-20] MEDS: Cholecalciferol (Vitamin D3) 25 MCG TABLET PO (10:15)
--- NOTE | 2024-11-20 10:23 | PC.NURSE ---
RAC PIV bothering pt due to location, new RFA#22 placed. Old IV removed per pt request.
--- NOTE | 2024-11-20 10:24 | MHC.EDTECH ---
I gave the Patient des and Eliza pascual.
[2024-11-20] MEDS: cefTRIAXone sodium 1 GM VIAL IVPUSH (11:47)
[2024-11-20] MEDS: Azithromycin 500 MG in 0.9 % Sodium Chloride 250 ML 125 MG IV (11:47)
--- NOTE | 2024-11-20 12:07 | PC.NURSE ---
Pt's left abdominal wound dressing removed, cleansed with NS. Ag dressing with primaport applied. Edges to wound macerated and white but wound bed is read, no signs of infection other than purulent drainage on dressing.
--- NOTE | 2024-11-20 13:31 | PC.NURSE ---
Attempted to call report to [facility], RN unavailable at this time but will call this RN back.
--- NOTE | 2024-11-20 14:20 | PC.NURSE ---
Report called to [facility] on [place] [id number] [facility], EMS at bedside at this time.
--- NOTE | 2024-12-02 09:59 | PC.NURSE ---
Addendum entered by Susi Pillai 12/02/24 09:59: LATE NOT, MED GIVEN 11/20 Original Note: PT MED WITH OXYCODONE FOR PAIN SCALE 9/10, REQUESTED THIS MED
== END 2024-11-20 15:13 | disposition short-term general hospital (02) ==
PROVIDERS: Physician Assistant Medical; Emergency Provider Emergency Medicine Emergency Medical Services; PCP Nurse Practitioner Family
DX: R59.1 Generalized enlarged lymph nodes (principal); J45.901 Unspecified asthma with (acute) exacerbation; R07.89 Other chest pain; R05.9 Cough, unspecified; R00.0 Tachycardia, unspecified; R06.02 Shortness of breath; F17.210 Nicotine dependence, cigarettes, uncomplicated; Z79.899 Other long term (current) drug therapy; Z86.711 Personal history of pulmonary embolism; Z79.01 Long term (current) use of anticoagulants; Z03.818 Encounter for observation for suspected exposure to other biological agents ruled out
CPT/HCPCS: 0241U; 36415; 71046; 71275; 80053; 81001; 82248; 83605; 83735; 84702; 85025; 87040; 87070; 87077; 87186; 87205; 87651; 93005; 94640; 96365; 96366; 96375; 96376; 99285; J0456; J0696; Q9967

== ENCOUNTER → 2024-11-18 08:43 | Outpatient (BNV) | payer OTHER, SELFPAY | PROVIDERS: Emergency Provider Emergency Medicine Emergency Medical Services; PCP Nurse Practitioner Family; Visit Provider Radiology Diagnostic Radiology | DX: R59.0 Localized enlarged lymph nodes (principal) | CPT/HCPCS: 71046; 71275 ==

== ENCOUNTER → 2024-11-18 09:07 | Outpatient (BNV) | payer OTHER, SELFPAY | PROVIDERS: Emergency Provider Emergency Medicine Emergency Medical Services; PCP Nurse Practitioner Family; Visit Provider Internal Medicine Cardiovascular Disease | DX: R00.0 Tachycardia, unspecified (principal) | CPT/HCPCS: 93010 ==